=== PATIENT | female | born 2000 | race Caucasian/White ===

== ENCOUNTER 2022-07-27 21:30 | Outpatient (REF) | payer BC, SELFPAY ==
[2022-07-30 14:09] LABS: Age Gdln ACOG Testing Note (.); IGP, rfx Aptima HPV ASCU Note (.)
== END 2022-07-27 21:31 | disposition home or self-care (01) ==
LOC: LAB 21:30
PROVIDERS: Visit Provider Obstetrics & Gynecology
DX: Z12.4 Encounter for screening for malignant neoplasm of cervix (principal)
CPT/HCPCS: G0145

== ENCOUNTER 2022-12-16 12:36 | Outpatient (OUT) | payer BC, OTHER, SELFPAY ==
--- NOTE | 2022-12-16 12:37 | US_ITS ---
[address] [address] Patient Name: ABRAHAM INFANTE MRN: [id number] date: 2000 Sex: F Assigned Patient Location: US Current Patient Location: Accession/Order Number: [id number] Exam Date: 12/16/2022 12:38 Report Date: 12/16/2022 17:49 At the request of: ONIEL SANCHEZ Procedure: US OB transvaginal EXAMINATION: US OB transvaginal HISTORY: MISSED MENSES COMPARISON: No relevant comparison available. FINDINGS: Waters intrauterine gestation Gestational sac: 4.4 cm, 9 weeks 6 days CRL: 3.1 cm, 10 weeks 0 days Yolk sac: 4.7 mm Heart rate: 169 bpm Identified adjacent to the gestational sac is an area of hypoechogenicity measuring 1.8 x 1.4 x 1.1 cm The uterus is normal The ovaries are normal. The right ovary measures 3.1 x 2.0 x 1.5 cm. the left ovary measures 2.4 x 1.4 x 1.3 cm Cervix: Closed, 4.4 cm Clinical age: 9 weeks 3 days Clinical RC: 07/18/2023 Ultrasound age: 10 weeks 0 days Ultrasound RC: 07/14/2023 US/US OB transvaginal IMPRESSION: Viable waters intrauterine gestation measuring 10 weeks 0 days Suspected subchorionic hematoma Electronically authenticated by: EDMAR HOOKS Date: 12/16/2022 17:49
== END 2022-12-16 12:37 | disposition home or self-care (01) ==
PROVIDERS: Visit Provider Obstetrics & Gynecology
DX: Z34.91 Encounter for supervision of normal pregnancy, unspecified, first trimester (principal); Z3A.10 10 weeks gestation of pregnancy
CPT/HCPCS: 76817

== ENCOUNTER 2023-07-07 13:23 | Outpatient (OUT) | payer BC, OTHER, SELFPAY ==
--- OUTSIDE RECORDS SUMMARY | 2023-07-07 13:34 | XMS_ITS | CCD ---
Author Organization [facility] Care Team Providers Care Adult [employer] Instructor Name Role Phone DANIEL ., DR ENGLE Consulting Unavailable REQUEST, DR MOISES LISTED Primary Care Unavaila ble DANIEL ., DR ENGLE Attending Unavailable DANIEL ., DR ENGLE Admitting Unavailable ZIEBER, DR INDIRA Gooden Consulting Unavailable REQUEST, DR DE LEON LISTED Primary Care Unavaila ble DANIEL ., DR ENGLE Attending Unavailable DANIEL ., DR ENGLE Admitting Unavailable DANIEL ., DR ENGLE Consulting Unavailable DANIEL ., DR ENGLE Attending Unavailable REQUEST, DR NONE LISTED Primary Care Unavaila ble DANIEL ., DR ENGLE Admitting Unavailable CASTILLO, DR FOUZIA Gooden Attending Unavailable CASTILLO, DR FOUZIA Gooden Admitting Unavailable REQUEST, DR DE LOEN LISTED Primary Care Unavaila ble ANNA, DR FOUZIA Gooden Consulting Unavailable DANIEL ., DR ENGLE Consulting Unavailable DANIEL ., DR ENGLE Attending Unavailable REQUEST, DR DE LEON LISTED Primary Care Unavaila ble DANIEL ., DR ENGLE Admitting Unavailable ZIEBER, DR INDIRA Gooden Consulting Unavailable MARKER ., DR SOTO Attending Unavailable MARKER ., DR SOTO Admitting Unavailable REQUEST, DR DE LEON LISTED Primary Care Unavaila ble MARKER ., DR SOTO Consulting Unavailable GATITOCARLA CARTER Consulting Unavailable DANIEL ., DR ENGLE Consulting Unavailable DANIEL ., DR ENGLE Admitting Unavailable REQUEST, DR DE LEON LISTED Primary Care Unavaila ble DANIEL ., DR ENGLE Attending Unavailable ELMA II, JESS Consulting Unavailable DANIEL ., DR ENGLE Procedure Practitioner Unavail able DANIEL ., DR ENGLE Consulting Unavailable DANIEL ., DR ENGLE Attending Unavailable DANIEL ., DR ENGLE Admitting Unavailable REQUEST, DR MOISES LISTED Primary Care Unavaila ble DANIEL ., DR ENGLE Admitting Unavailable WEST, DR EDMAR Mora Consulting Unavailable REQUEST, NONE LISTED Primary Care Unavaila ble DANIEL ., DR ENGLE Attending Unavailable DANIEL ., DR ENGLE Consulting Unavailable DANIEL ., DR ENGLE Consulting Unavailable DANIEL ., DR ENGLE Admitting Unavailable REQUEST, DR NONE LISTED Primary Care Unavaila ble DANIEL ., DR ENGLE Attending Unavailable DANIEL ., DR ENGLE Admitting Unavailable WEST, DR EDMAR Mora Consulting Unavailable REQUEST, DR NONE LISTED Primary Care Unavaila ble DANIEL ., DR ENGLE Attending Unavailable DANIEL ., DR ENGLE Consulting Unavailable DANIEL ., DR ENGLE Consulting Unavailable DANIEL ., DR ENGLE Admitting Unavailable REQUEST, DR NONE LISTED Primary Care Unavaila ble DANIEL ., DR ENGLE Attending Unavailable DANIEL ., DR ENGLE Consulting Unavailable REQUEST, DR NONE LISTED Primary Care Unavaila ble DANIEL ., DR ENGLE Attending Unavailable DANIEL ., DR ENGLE Admitting Unavailable DANIEL ., DR ENGLE Consulting Unavailable REQUEST, DR NONE LISTED Primary Care Unavaila ble DANIEL ., DR ENGLE Admitting Unavailable DANIEL ., DR ENGLE Attending Unavailable DANIEL ., DR ENGLE Admitting Unavailable REQUEST, DR NONE LISTED Primary Care Unavaila ble DANIEL ., DR ENLGE Attending Unavailable DANIEL ., DR ENGLE Consulting Unavailable REQUEST, DR NONE LISTED Primary Care Unavaila ble DANIEL ., DR ENGLE Attending Unavailable DANIEL ., DR ENGLE Admitting Unavailable DANIEL ., DR ENGLE Admitting Unavailable DANIEL ., DR ENGLE Consulting Unavailable REQUEST, DR NONE LISTED Primary Care Unavaila ble DANIEL ., DR ENGLE Attending Unavailable DANIEL ., DR ENGLE Admitting Unavailable REQUEST, NONE LISTED Primary Care Unavaila ble DANIEL ., DR ENGLE Attending Unavailable DIAB ., AYUSH Admitting Unavailable REQUEST, NONE LISTED Primary Care Unavaila ble DIAB ., AYUSH Attending Unavailable KARASIK ., DR HARTMAN Attending Unavailabl e KARASIK ., DR HARTMAN Admitting Unavailabl e KARASIK ., DR HARTMAN Consulting Unavailabl e REQUEST, DR DE LEON LISTED Primary Care Unavaila ble Problems Active Problems Problem Classification Problem Date Documented Date Episodic/Chronic Abdominal pain (1 source) Left lower quadrant pain; Translations: [LEFT LOWER QUADRANT PAIN] Onset: 03-08-2022 Episodic Menstrual disorders (4 sources) Irregular menstruation, unspecified; Translations: [IRREGULAR MENSTRUATION UNSPECIFIED] Onset: 10-27-2021 Chronic OB-related trauma to perineum and vulva (1 source) First degree perineal laceration during delivery; Translations: [FIRST DEG PERINEAL LAC DUR DELIV] Onset: 05-13-2022 Episodic Other complications of ; puerperium affecting management of mother (1 source) Streptococcus B carrier state complicating childbirth; Translations: [STREP B ESQUIVEL STATE COMP CHILDBIRTH] Onset: 05-13-2022 Episodic Other complications of (4 sources) Other specified related conditions, third trimester; Translations: [OTH SPEC PREG RELATED COND 3RD TRI] Onset: 03-03-2022 Episodic Other complications of (4 sources) Maternal care for excessive growth, third trimester, not applicable or unspecified; Translations: [MAT CARE EXCSS FTL GRTH 3RD TRI UNS] Onset: 03-02-2022 Episodic Other and delivery including normal (14 sources) Encounter for routine follow-up; Translations: [Encounter for supervision of normal , unspecified, third trimester] Onset: 10-12-2021 Episodic Other screening for suspected conditions (not mental disorders or infectious disease) (11 sources) Encounter for screening for diabetes mellitus; Translations: [Encounter for other specified screening] Onset: 11-01-2021 Episodic Residual codes; unclassified (1 source) 39 weeks gestation of ; Translations: [39 WEEKS GESTATION OF ] Onset: 05-13-2022 Episodic Residual codes; unclassified (1 source) 30 weeks gestation of ; Translations: [30 WEEKS GESTATION OF ] Onset: 03-08-2022 Episodic Screening and history of mental health and substance abuse codes (1 source) Personal history of nicotine dependence; Translations: [PERSONAL HISTORY OF NICOTINE DEPEND] Onset: 05-13-2022 Episodic Past or Other Problems Problem Classification Problem Date Documented Da te Episodic/Chronic Gastrointestinal hemorrhage (1 source) Hematemesis; Translations: [HEMATEMESIS] Onset: 10-14-2021 Episodic Hemorrhage during ; abruptio placenta; placenta previa (4 sources) Hemorrhage in early , unspecified; Translations: [HEMORRHAGE EARLY UNS] Onset: 07-07-2021 Episodic Immunizations and screening for infectious disease (1 source) Contact with and (suspected) exposure to infections with a predominantly sexual mode of transmission; Translations: [CONTCT W EXPOS INFECT SEXUAL TRNSMS] Onset: 11-01-2021 Episodic Nausea and vomiting (3 sources) Vomiting, unspecified; Translations: [VOMITING UNSPECIFIED] Onset: 10-12-2021 Episodic Other complications of (1 source) Other specified related conditions, first trimester; Translations: [OTH SPEC PREG RELATED COND 1ST TRI] Onset: 10-14-2021 Episodic Other complications of (4 sources) with inconclusive viability, not applicable or unspecified; Translations: [PREG INCONCLUS VIABIL NA/UNS] Onset: 07-15-2021 Episodic Residual codes; unclassified (1 source) 10 weeks gestation of ; Translations: [10 WEEKS GESTATION OF ] Onset: 10-14-2021 Episodic Residual codes; unclassified (1 source) 9 weeks gestation of ; Translations: [9 WEEKS GESTATION OF ] Onset: 10-12-2021 Episodic Residual codes; unclassified (1 source) Less than 8 weeks gestation of ; Translations: [< 8 WEEKS GESTATION ] Onset: 07-09-2021 Episodic Spontaneous (4 sources) Complete or unspecified spontaneous without complication; Translations: [COMPLETE/UNS SPONT AB W/O COMP] Onset: 06-11-2021 Episodic Results Test Name Value Interpretation Reference Range Facility CBC AUTO DIFFon 05-05-2022 BASO # 0.0 103/ul Normal 0.0-0.1 [facility] Comment on above: Performed By: #### C BC #### [facility] [address] [place] [address] Dr. Mary Perera Basophils/100 WBC (Bld) 0.2 % Normal 0.2-2.0 [facility] Comment on above: Performed By: #### C BC #### [facility] [address] [address] [address] Mary Perera EO # 0.1 103/ul Normal 0.0-0.7 [facility] Comment on above: Performed By: #### C BC #### [facility] [address] [address] [address] Mary Perera Eosinophils/100 WBC (Bld) 0.8 % Critically low 0.9-7.0 [facility] Comment on above: Performed By: #### C BC #### [facility] [address] [place] [address] Dr. Mary Perera Erythrocyte distribution width (RBC) [Ratio] 14.3 % Normal 11.0-15.0 [facility] Comment on above: Performed By: #### C BC #### [facility] [address] [place] [address] Dr. Mary Perera Hematocrit (Bld) [Volume fraction] 36.0 % Normal 36.0-48.0 [facility] Comment on above: Performed By: #### C BC #### [facility] [address] [place] [address] Dr. Mary Perera Hemoglobin (Bld) [Mass/Vol] 12.3 g/dL Normal 12.0-16.0 [facility] Comment on above: Performed By: #### C BC #### [facility] [address] [place] [address] Dr. Mary Perera IG # 0.07 10e3/ul Critically high 0.00-0.03 [facility] Comment on above: Performed By: #### C BC #### [facility] [address] [place] [address] Dr. Mary Perera IG % 0.5 % Normal 0.0-0.5 [facility] Comment on above: Performed By: #### C BC #### [facility] [address] [place] [address] Dr. Mary Perera LYMPH # 2.2 103/ul Normal 1.2-3.8 [facility] Comment on above: Performed By: #### C BC #### [facility] [address] [place] [address] Dr. Mary Perera Lymphocytes/100 WBC (Bld) 15.3 % Critically low 20.5-60.0 [facility] Comment on above: Performed By: #### C BC #### [facility] [address] [place] [address] Dr. Mary Perera MANUAL DIFF REQ NO Normal [facility] Comment on above: Performed By: #### C BC #### [facility] [address] [address] [address] Mary Perera MCH (RBC) [Entitic mass] 30.4 pg Normal 26.7-34.0 [facility] Comment on above: Performed By: #### C BC #### [facility] [address] [address] [address] Mary Perera MCHC (RBC) [Mass/Vol] 34.2 g/dL Normal 29.9-35.2 [facility] Comment on above: Performed By: #### C BC #### [facility] [address] [address] [address] Mary Perera MCV (RBC) [Entitic vol] 89.1 fL Normal 81.0-99.0 [facility] Comment on above: Performed By: #### C BC #### [facility] [address] [place] [address] Dr. Mary Perera MONO # 0.9 103/ul Critically high 0.3-0.8 [facility] Comment on above: Performed By: #### C BC #### [facility] [address] [address] [address] Mary Perera Monocytes/100 WBC (Bld) 6.4 % Normal 1.7-12.0 [facility] Comment on above: Performed By: #### C BC #### [facility] [address] [place] [address] Dr. Mary Perera NEUT # 10.9 103/ul Critically high 1.4-6.5 [facility] Comment on above: Performed By: #### C BC #### [facility] [address] [place] [address] Dr. Mary Perera Neutrophils/100 WBC (Bld) 76.8 % Critically high 43.0-75.0 [facility] Comment on above: Performed By: #### C BC #### [facility] [address] [place] [address] Dr. Mary Perera Platelet mean volume (Bld) [Entitic vol] 9.2 fL Critically low 9.5-13.5 [facility] Comment on above: Performed By: #### C BC #### [facility] [address] [address] [address] Mary Perera PLT 251 103/ul Normal 150-450 [facility] Comment on above: Performed By: #### C BC #### [facility] [address] [address] [address] Mary Perera RBC 4.04 106/ul Critically low 4.20-5.40 [facility] Comment on above: Performed By: #### C BC #### [facility] [address] [address] [address] Mary Perera WBC 14.2 103/ul Critically high 4.0-11.0 [facility] Comment on above: Performed By: #### C BC #### [facility] [address] [place] [address] Dr. Mary Perera CBC AUTO DIFFon 05-04-2022 BASO # 0.0 103/ul Normal 0.0-0.1 [facility] Comment on above: Performed By: #### P REGQNT #### [facility] [address] [place] [address] Dr. Mary Perera Basophils/100 WBC (Bld) 0.3 % Normal 0.2-2.0 [facility] Comment on above: Performed By: #### P REGQNT #### [facility] [address] [place] [address] Dr. Mary Perera EO # 0.1 103/ul Normal 0.0-0.7 [facility] Comment on above: Performed By: #### P REGQNT #### [facility] [address] [place] [address] Dr. Mary Perera Eosinophils/100 WBC (Bld) 1.2 % Normal 0.9-7.0 [facility] Comment on above: Performed By: #### P REGQNT #### [facility] [address] [place] [address] Dr. Mary Perera Erythrocyte distribution width (RBC) [Ratio] 14.1 % Normal 11.0-15.0 [facility] Comment on above: Performed By: #### P REGQNT #### [facility] [address] [address] [address] Mary Perera Hematocrit (Bld) [Volume fraction] 38.2 % Normal 36.0-48.0 [facility] Comment on above: Performed By: #### P REGQNT #### [facility] [address] [address] [address] Mary Perera Hemoglobin (Bld) [Mass/Vol] 13.2 g/dL Normal 12.0-16.0 [facility] Comment on above: Performed By: #### P REGQNT #### [facility] [address] [place] [address] Dr. Mary Perera IG # 0.08 10e3/ul Critically high 0.00-0.03 [facility] Comment on above: Performed By: #### P REGQNT #### [facility] [address] [place] [address] Dr. Mary Perera IG % 0.9 % Critically high 0.0-0.5 [facility] Comment on above: Performed By: #### P REGQNT #### [facility] [address] [place] [address] Dr. Mary Perera LYMPH # 2.8 103/ul Normal 1.2-3.8 [facility] Comment on above: Performed By: #### P REGQNT #### [facility] [address] [place] [address] Dr. Mary Perera Lymphocytes/100 WBC (Bld) 31.1 % Normal 20.5-60.0 [facility] Comment on above: Performed By: #### P REGQNT #### [facility] [address] [address] [address] Mary Perera MANUAL DIFF REQ NO Normal [facility] Comment on above: Performed By: #### P REGQNT #### [facility] [address] [place] [address] Dr. Mary Perera MCH (RBC) [Entitic mass] 30.8 pg Normal 26.7-34.0 [facility] Comment on above: Performed By: #### P REGQNT #### [facility] [address] [place] [address] Dr. Mary Perera MCHC (RBC) [Mass/Vol] 34.6 g/dL Normal 29.9-35.2 [facility] Comment on above: Performed By: #### P REGQNT #### [facility] [address] [place] [address] Dr. Mary Perera MCV (RBC) [Entitic vol] 89.3 fL Normal 81.0-99.0 [facility] Comment on above: Performed By: #### P REGQNT #### [facility] [address] [place] [address] Dr. Mary Perera MONO # 0.7 103/ul Normal 0.3-0.8 [facility] Comment on above: Performed By: #### P REGQNT #### [facility] [address] [place] [address] Dr. Mary Perera Monocytes/100 WBC (Bld) 7.9 % Normal 1.7-12.0 [facility] Comment on above: Performed By: #### P REGQNT #### [facility] [address] [place] [address] Dr. Mary Perera NEUT # 5.3 103/ul Normal 1.4-6.5 [facility] Comment on above: Performed By: #### P REGQNT #### [facility] [address] [place] [address] Dr. Mary Perera Neutrophils/100 WBC (Bld) 58.6 % Normal 43.0-75.0 [facility] Comment on above: Performed By: #### P REGQNT #### [facility] [address] [place] [address] Dr. Mary Perera Platelet mean volume (Bld) [Entitic vol] 9.3 fL Critically low 9.5-13.5 [facility] Comment on above: Performed By: #### P REGQNT #### [facility] [address] [place] [address] Dr. Mary Perera PLT 271 103/ul Normal 150-450 [facility] Comment on above: Performed By: #### P REGQNT #### [facility] [address] [place] [address] Dr. Mary Perera RBC 4.28 106/ul Normal 4.20-5.40 [facility] Comment on above: Performed By: #### P REGQNT #### [facility] [address] [place] [address] Dr. Mary Perera WBC 9.0 103/ul Normal 4.0-11.0 [facility] Comment on above: Performed By: #### P REGQNT #### [facility] [address] [place] [address] Dr. Mary Perera DRUG SCREEN RAPID (URINE)on 05-04-2022 AMP Negative Normal NEGATIVE [facility] Comment on above: Performed By: #### P REGQNT #### [facility] [address] [place] [address] Dr. Mary Perera BAR Negative Normal NEGATIVE [facility] Comment on above: Performed By: #### P REGQNT #### [facility] [address] [place] [address] Dr. Mary Perera BUP Negative Normal NEGATIVE [facility] Comment on above: Performed By: #### P REGQNT #### [facility] [address] [place] [address] Dr. Mary Perera BZO Negative Normal NEGATIVE [facility] Comment on above: Performed By: #### P REGQNT #### [facility] [address] [place] [address] Dr. Mary Perera JOSÉ LUIS Negative Normal NEGATIVE [facility] Comment on above: Performed By: #### P REGQNT #### [facility] [address] [place] [address] Dr. Mary Perera CUT-OFFS SEE BELOW Normal [facility] Comment on above: Result Comment: AMP (Amphetamine): 500ng/mL, BAR (Barbituates): 200 ng/mL, BZO (Benzodiazepines): 150 ng/mL, BUP (Buprenorphine): 10 ng/mL, JOSÉ LUIS (Cocaine): 150 ng/mL, mAMP (Methamphetamine): 500 ng/mL, MTD (Methadone): 200 ng/mL, OPI (Opiates): 100 ng/mL, OXY (Oxycodone): 100 ng/mL, PCP (Phencyclidine): 25 ng/mL, PPX (Propoxyphene): 300 ng/mL, THC (Cannabinoids): 50 ng/mL, TCA (Trycyclic Antidepressants): 300 ng/mL Performed By: #### P REGQNT #### [facility] [address] [place] [address] Dr. Mary Perera DRUG CUT HEADER DRUG CLASS TEST SYSTEM CUT-OFF CONCENTRATIONS ARE FOLLOWS: Normal [facility] Comment on above: Performed By: #### P REGQNT #### [facility] [address] [place] [address] Dr. Mary Perera mAMP Negative Normal NEGATIVE [facility] Comment on above: Performed By: #### P REGQNT #### [facility] [address] [place] [address] Dr. Mary Perera MTD Negative Normal NEGATIVE [facility] Comment on above: Performed By: #### P REGQNT #### [facility] [address] [place] [address] Dr. Mary Perera OPI Negative Normal NEGATIVE [facility] Comment on above: Performed By: #### P REGQNT #### [facility] [address] [place] [address] Dr. Mary Perera OXY Negative Normal NEGATIVE [facility] Comment on above: Performed By: #### P REGQNT #### [facility] [address] [place] [address] Dr. Mary Perera PCP Negative Normal NEGATIVE [facility] Comment on above: Performed By: #### P REGQNT #### [facility] [address] [place] [address] Dr. Mary Perera PPX Negative Normal NEGATIVE [facility] Comment on above: Performed By: #### P REGQNT #### [facility] [address] [place] [address] Dr. Mary Perera TCA Negative Normal NEGATIVE [facility] Comment on above: Performed By: #### P REGQNT #### [facility] [address] [place] [address] Dr. Mary Perera THC Negative Normal NEGATIVE [facility] Comment on above: Performed By: #### P REGQNT #### [facility] [address] [place] [address] Dr. Mary Perera TYPE AND SCREENon 05-04-2022 TYPE AND SCREEN Negative Normal [facility] Comment on above: Performed By: #### T NS #### [facility] [address] [place] [address] Dr. Mary Perera GROUP B STREP CULTUREon S. agalactiae Ag Ql (Unsp spec) Culture Observations: Group B Strep called to Giselle Gardner/EMILEE at Dr. Vieira's office 04/19/22 @08[facility] Isolate 1 Streptococcus agalactiae Moderate growth of ORGANISM 1 Streptococcus agalactiae ANTIBIOTIC M.I.C RX STATUS Benzylpenicillin <=0.06 S F Ampicillin <=0.25 S F Cefotaxime <=0.12 S F Ceftriaxone <=0.12 S F Levofloxacin 0.5 S F Inducible Clindamycin Resistance Neg NEG F Erythromycin >=8 R F Clindamycin >=1 R F Linezolid <=2 S F Vancomycin 0.25 S F Tetracycline >=16 R F Normal [facility] Comment on above: Performed By: #### G BSCX #### [facility] [address] [place] [address] Dr. Mary Perera CULTURE URINEon 03-03-2022 CULTURE URINE Culture Observations : LIGHT GROWTH OF MIXED GENITAL DANTE. NO POTENTIAL PATHOGENS SEEN. Normal [facility] Comment on above: Performed By: #### C BC #### [facility] [address] [place] [address] Dr. 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 Mary Perera Clarity (U) CLEAR Normal CLEAR [facility] Comment on above: Performed By: #### C MP #### [facility] [address] [place] [address] Dr. Mary Perera Color (U) LT. YELLOW Normal YELLOW [facility] Comment on above: Performed By: #### C MP #### [facility] [address] [place] [address] Dr. Mary Perera Glucose Ql (U) Negative Normal NEGATIVE [facility] Comment on above: Performed By: #### C MP #### [facility] [address] [place] [address] Dr. Mary Perera Hemoglobin Ql (U) Negative Normal NEGATIVE [facility] Comment on above: Performed By: #### C MP #### [facility] [address] [place] [address] Dr. Mary Perera Ketones Ql (U) Negative Normal NEGATIVE [facility] Comment on above: Performed By: #### C MP #### [facility] [address] [place] [address] Dr. Mary Perera LEUKOCYTES LARGE Abnormal NEGATIVE [facility] Comment on above: Performed By: #### C MP #### [facility] [address] [place] [address] Dr. Mary Perera Nitrite Ql (U) Negative Normal NEGATIVE [facility] Comment on above: Performed By: #### C MP #### [facility] [address] [place] [address] Dr. Mary Perera pH (U) 6.0 [pH] Normal 5-9 [facility] Comment on above: Performed By: #### C MP #### [facility] [address] [place] [address] Dr. Mary Perera SPEC GRAVITY 1.020 Normal 1.005-<=1.025 [facility] Comment on above: Performed By: #### C MP #### [facility] [address] [place] [address] Dr. Mary Perera UA PROTEIN Negative Normal NEGATIVE/ TRACE [facility] Comment on above: Performed By: #### C MP #### [facility] [address] [place] [address] Dr. Mary Perera UR MICRO IND INDICATED Normal [facility] Comment on above: Performed By: #### C MP #### [facility] [address] [place] [address] Dr. Mary Perera Urobilinogen Qn (U) 0.2 {Tung'U}/dL Normal 0.2 - 1. 0 [facility] Comment on above: Performed By: #### C MP #### [facility] [address] [place] [address] Dr. Mary Perera URINE MICROSCOPIC ONLYon BACTERIA SMALL Abnormal NONE SEEN [facility] Comment on above: Performed By: #### C MP #### [facility] [address] [place] [address] Dr. Mary Perera Bacteria identified Cx Nom (U) INDICATED Normal [facility] Comment on above: Performed By: #### C MP #### [facility] [address] [place] [address] Dr. Mary Perera CAST NONE SEEN Normal NONE SEEN [facility] Comment on above: Performed By: #### C MP #### [facility] [address] [place] [address] Dr. Mary Perera Crystals LM Nom (Urine sed) NONE SEEN Normal NONE SEEN [facility] Comment on above: Performed By: #### C MP #### [facility] [address] [place] [address] Dr. Mary Perera Epithelial cells LM Ql (Urine sed) MODERATE Abnormal NONE SEEN /RARE [facility] Comment on above: Performed By: #### C MP #### [facility] [address] [place] [address] Dr. Mary Perera MUCOUS NONE SEEN Normal NONE SEEN [facility] Comment on above: Performed By: #### C MP #### [facility] [address] [place] [address] Dr. Mary Perera RBC 5-10 Abnormal 0-2 [facility] Comment on above: Performed By: #### C MP #### [facility] [address] [place] [address] Dr. Mary Perera WBC 10-20 Abnormal NONE SEEN [facility] Comment on above: Performed By: #### C MP #### [facility] [address] [place] [address] Dr. Mary Perera US PREG GROWTHon 03-02-2022 US PREG GROWTH EXAMINATION: US PREG GROWTH HISTORY: Large for gestation age fetus COMPARISON: No relevant comparison available. FINDINGS: Heart Rate: 132.0 bpm Amniotic Fluid Volume: 11.9 cm Number: 1.0 Position: Cephalic presentation, longitudinal lie Maximum Vertical Pocket: 3.9 cm cm 1.8 cm cm 3.2 cm cm 2.9 cm cm BIOMETRY: BPD: 7.6 cm cm; 30 weeks 4 days; 53% HC: 27.8 cmcm; 30 weeks 3 days, 22% AC: 25.2 cm cm; 29 weeks 3 days, 23% FL: 6.0 cm cm; 31 weeks 3 days; 70.1 % EFW: 1533.6 grams, 3 lbs. 6 oz., 40% FL/AC: 23.9 FL/BPD: 79.0 HC/AC: 1.1 GESTATIONAL AGE: Age by EDC: 30 weeks 1 days RC by EDC: 05/10/2022 Age by US: 30 weeks 3 days RC by US: 05/08/2022 IMPRESSION: Normal interval growth Electronically authenticated by: EDMAR HOOKS Date: 2022-03-02 16:20 Normal [facility] CBC AUTO DIFFon 02-18-2022 BASO # 0.0 103/ul Normal 0.0-0.1 [facility] Comment on above: Performed By: #### C BC #### [facility] [address] [place] [address] Dr. Mary Perera Basophils/100 WBC (Bld) 0.4 % Normal 0.2-2.0 [facility] Comment on above: Performed By: #### C BC #### [facility] [address] [place] [address] Dr. Mary Perera EO # 0.2 103/ul Normal 0.0-0.7 [facility] Comment on above: Performed By: #### C BC #### [facility] [address] [place] [address] Dr. Mary Perera Eosinophils/100 WBC (Bld) 1.8 % Normal 0.9-7.0 [facility] Comment on above: Performed By: #### C BC #### [facility] [address] [place] [address] Dr. Mary Perera Erythrocyte distribution width (RBC) [Ratio] 13.4 % Normal 11.0-15.0 [facility] Comment on above: Performed By: #### C BC #### [facility] [address] [place] [address] Dr. Mary Perera Hematocrit (Bld) [Volume fraction] 34.9 % Critically low 36.0-48.0 [facility] Comment on above: Performed By: #### C BC #### [facility] [address] [place] [address] Dr. Mary Perera Hemoglobin (Bld) [Mass/Vol] 12.1 g/dL Normal 12.0-16.0 [facility] Comment on above: Performed By: #### C BC #### [facility] [address] [place] [address] Dr. Mary Perera IG # 0.11 10e3/ul Critically high 0.00-0.03 [facility] Comment on above: Performed By: #### C BC #### [facility] [address] [place] [address] Dr. Mary Perera IG % 1.1 % Critically high 0.0-0.5 [facility] Comment on above: Performed By: #### C BC #### [facility] [address] [place] [address] Dr. Mary Perera LYMPH # 2.0 103/ul Normal 1.2-3.8 [facility] Comment on above: Performed By: #### C BC #### [facility] [address] [place] [address] Dr. Mary Perera Lymphocytes/100 WBC (Bld) 20.3 % Critically low 20.5-60.0 [facility] Comment on above: Performed By: #### C BC #### [facility] [address] [place] [address] Dr. Mary Perera MANUAL DIFF REQ NO Normal [facility] Comment on above: Performed By: #### C BC #### [facility] [address] [place] [address] Dr. Mary Perera MCH (RBC) [Entitic mass] 31.5 pg Normal 26.7-34.0 [facility] Comment on above: Performed By: #### C BC #### [facility] [address] [place] [address] Dr. Mary Perera MCHC (RBC) [Mass/Vol] 34.7 g/dL Normal 29.9-35.2 [facility] Comment on above: Performed By: #### C BC #### [facility] [address] [place] [address] Dr. Mary Perera MCV (RBC) [Entitic vol] 90.9 fL Normal 81.0-99.0 [facility] Comment on above: Performed By: #### C BC #### [facility] [address] [place] [address] Dr. Mary Perera MONO # 0.6 103/ul Normal 0.3-0.8 [facility] Comment on above: Performed By: #### C BC #### [facility] [address] [place] [address] Dr. Mary Perera Monocytes/100 WBC (Bld) 6.3 % Normal 1.7-12.0 [facility] Comment on above: Performed By: #### C BC #### [facility] [address] [place] [address] Dr. Mary Perera NEUT # 7.0 103/ul Critically high 1.4-6.5 [facility] Comment on above: Performed By: #### C BC #### [facility] [address] [place] [address] Dr. Mary Perera Neutrophils/100 WBC (Bld) 70.1 % Normal 43.0-75.0 [facility] Comment on above: Performed By: #### C BC #### [facility] [address] [address] [address] Mary Perear Platelet mean volume (Bld) [Entitic vol] 9.2 fL Critically low 9.5-13.5 [facility] Comment on above: Performed By: #### C BC #### [facility] [address] [address] [address] Mary Perera PLT 252 103/ul Normal 150-450 [facility] Comment on above: Performed By: #### C BC #### [facility] [address] [address] [address] Mary Perera RBC 3.84 106/ul Critically low 4.20-5.40 [facility] Comment on above: Performed By: #### C BC #### [facility] [address] [address] [address] Mary Perera WBC 10.0 103/ul Normal 4.0-11.0 [facility] Comment on above: Performed By: #### C BC #### [facility] [address] [address] [address] Mary Perera GLUCOSE - 1HRon 02-18-2022 Glucose [Mass/Vol] 106 mg/dL Normal 74-[address] [facility] Comment on above: Performed By: #### C BC #### [facility] [address] [place] [address] Dr. Mary Perera US PREG ANATOMY SINGLEon US PREG ANATOMY SINGLE EXAMINATION: US PREG ANATOMY SINGLE HISTORY: anatomy study COMPARISON: No relevant comparison available. TECHNIQUE: Transabdominal sonographic examination was performed for obstetrical and evaluation. FINDINGS: Number: 1 Heart Rate: 134.0 bpm H.B. /min Amniotic Fluid Volume: Subjectively normal. Placental Location: Posterior, placental edge 3.6 cm from the internal cervical os position: Breech presentation, longitudinal lie Cervix Length: 4.6 cm, small amount of fluid in the endocervical canal measuring 1 mm Normally visualized anatomy: Cerebellum, choroid plexus, cisterna magna, lateral cerebral ventricles, orbits, midline falx, hard palate, four-chamber heart, RVOT, LVOT, stomach, kidneys, bladder, umbilical cord insertion into the abdomen, three-vessel cord, cervical spine, thoracic spine, lumbar spine, sacral spine, right upper extremity, left upper extremity, right lower extremity, left lower extremity Suboptimally visualized anatomy: None BIOMETRY: BPD: 4.1 cm 18 weeks 4 days , 3% HC: 16.7 cm 19 weeks 2 days, 11% AC: 14.5 cm 19 weeks 6 days, 33% FL: 3.4 cm 20 weeks 3 days, 55% EFW:325.3 grams; 11 ounces FL/AC: 23.1 FL/BPD: 81.1 HC/AC: 1.2 GESTATIONAL AGE: Age by EDC: 20 weeks 1 days RC by EDC: 05/10/2022 Age by current US: 19 weeks 4 days RC by current US: 05/14/2022 IMPRESSION: Normal anatomy scan *Reference: [employer] Practice Guideline for the performance of Obstetric Ultrasound Examinations, November 14, 2006. Electronically authenticated by: EDMAR HOOKS Date: 2021-12-22 19:05 Normal [facility] AFP MATERNAL FOR SPINA BIFID Aon 12-21-2021 AFP MoM 0.53 Normal [facility] Comment on above: Performed By: #### C BC #### [facility] [address] [address] [address] Mary Perera AFP Value 27.5 ng/mL Normal [facility] Comment on above: Performed By: #### C BC #### [facility] [address] [address] [address] Mary Perera AFP, Serum for Spina Bifida Report Normal [facility] Comment on above: Performed By: #### C BC #### [facility] [address] [address] [address] Mary Perera Comment Comment Normal [facility] Comment on above: Result Comment: Florina Cordero, Ph.D., [facility] Director . References: Available Upon Request. . Multiples Of Median Cutoffs For AFP Elevations Nash 2.5 Black 2.8 IDD 2.0 Twins 4.5 Abbreviation Definitions IDD - Insulin Dep Diabetes OSBR - Open Spina Bifida Risk . For further inquiries contact [employer] at [phone]. . This test was developed and its performance characteristics determined by [employer]. It has not been cleared or approved by the Food and Drug Administration. Performed By: #### C BC #### [facility] [address] [place] [address] Dr. Mary Covarrubias Age Collection Date 19.3 weeks Normal [facility] Comment on above: Performed By: #### C BC #### [facility] [address] [place] [address] Dr. Mary Perera Gestat, Age Based on RC Normal [facility] Comment on above: Result Comment: 04/15 Recalculations are not recommended when gestational dating by LMP and ultrasound are within 10 days. Performed By: #### C BC #### [facility] [address] [place] [address] Dr. Mary Perera Insulin Dep Diabetes No Normal [facility] Comment on above: Performed By: #### C BC #### [facility] [address] [place] [address] Dr. Mary Perera Interpretation Comment Normal [facility] Comment on above: Result Comment: Inte rpretation: Screen Negative . This result is screen negative for OSB. The AFP MoM calculated is based on the gestational age provided. MS-AFP can identify up to 80% of open neural tube defects. Closed neural tube defects and some open defects may not be detected by this test. This test does not screen for Down Syndrome or Trisomy 18. If screening for Down Syndrome or Trisomy 18 is desired, contact [employer] to discuss available options. The [employer] recommends amniocentesis be offered to women age 35 and older. Performed By: #### C BC #### [facility] [address] [place] [address] Dr. Mary Perera [age] Normal [facility] Comment on above: Performed By: #### C BC #### [facility] [address] [place] [address] Dr. Mary Perera Multiple Gestation No Normal [facility] Comment on above: Performed By: #### C BC #### [facility] [address] [place] [address] Dr. Mary Perera OS[place] [address] Normal [facility] Comment on above: Performed By: #### C BC #### [facility] [address] [place] [address] Dr. Mary Perera PDF . Normal [facility] Comment on above: Performed By: #### C BC #### [facility] [address] [place] [address] Dr. Mary Perera Race Normal [facility] Comment on above: Performed By: #### C BC #### [facility] [address] [place] [address] Dr. Mary Perera Test Results: Negative Normal [facility] Comment on above: Performed By: #### C BC #### [facility] [address] [place] [address] Dr. Mary Perera CULTURE URINEon 10-29-2021 CULTURE URINE Isolate 1 Streptococcus agalactiae 10,000 cfu/mL of ORGANISM 1 Streptococcus agalactiae ANTIBIOTIC M.I.C RX STATUS Benzylpenicillin <=0.06 S F Ampicillin <=0.25 S F Cefotaxime <=0.12 S F Ceftriaxone <=0.12 S F Levofloxacin 0.5 S F Inducible Clindamycin Resistance Neg NEG F Erythromycin >=8 R F Clindamycin >=1 R F Linezolid <=2 S F Vancomycin 0.5 S F Tetracycline >=16 R F Normal [facility] Comment on above: Performed By: #### U RCX #### [facility] [address] [place] [address] Dr. Mary Perera HEP B SURFACE ANTIGEN SCREEN on 10-28-2021 HBsAg Screen Negative Normal Negative [facility] Comment on above: Performed By: #### P REGQNT #### [facility] [address] [place] [address] Dr. Mary Perera HEPATITIS C VIRUS AB W/ REFL EX QUANTon 10-28-2021 HCV AB <0.1 Normal 0.0-0.9 [facility] Comment on above: Performed By: #### C MP #### [facility] [address] [place] [address] Dr. Mary Perera Interpretation: Comment Normal [facility] Comment on above: Result Comment: Nega tive Not infected with HCV, unless recent infection is suspected or other evidence exists to indicate HCV infection. Performed By: #### C MP #### [facility] [address] [place] [address] Dr. Mary Perera HIV 1 AND 2 WITH REFLEXon HIV Screen 4th Generation wRfx Non-Reactive Normal Non Reactive [facility] Comment on above: Result Comment: HIV Negative HIV-1/HIV-2 antibodies and HIV-1 p24 antigen were NOT detected. There is no laboratory evidence of HIV infection. Performed By: #### C MP #### [facility] [address] [place] [address] Dr. Mary Perera RPR QUANTon 10-28-2021 Rapid Plasma Reagin, Quant Non-Reactive Normal NonRea<1:1 [facility] Comment on above: Result Comment: Plea se Note: This test does not meet current guidelines for screening and diagnosis of syphilis. This test is intended for following treatment response in patients being treated for syphilis infection. To screen for syphilis infection, a reflex cascade that includes both RPR and a treponema-specific assay should be utilized, such as Treponema pallidum (Syphilis) Screening [place] (647004) or Rapid Plasma Reagin (RPR) Test With Reflex to Quantitative RPR and Confirmatory Treponema pallidum Antibodies (879728). Performed By: #### C MP #### [facility] [address] [place] [address] Dr. Mary Perera RUBELLA AB IGGon 10-28-2021 Rubella Antibodies, IgG 13.20 index Normal Immune >0.99 [facility] Comment on above: Result Comment: Non- immune <0.90 Equivocal 0.90 - 0.99 Immune >0.99 Performed By: #### R UBIGG #### [facility] [address] [place] [address] Dr. Mary Perera CBC AUTO DIFFon 10-27-2021 BASO # 0.1 103/ul Normal 0.0-0.1 [facility] Comment on above: Performed By: #### P REGQNT #### [facility] [address] [address] [address] Mary Perera Basophils/100 WBC (Bld) 0.6 % Normal 0.2-2.0 [facility] Comment on above: Performed By: #### P REGQNT #### [facility] [address] [address] [address] Mary Perera EO # 0.3 103/ul Normal 0.0-0.7 [facility] Comment on above: Performed By: #### P REGQNT #### [facility] [address] [address] [address] Mary Perera Eosinophils/100 WBC (Bld) 3.4 % Normal 0.9-7.0 [facility] Comment on above: Performed By: #### P REGQNT #### [facility] [address] [place] [address] Dr. Mary Perera Erythrocyte distribution width (RBC) [Ratio] 13.3 % Normal 11.0-15.0 [facility] Comment on above: Performed By: #### P REGQNT #### [facility] [address] [place] [address] Dr. Mary Perera Hematocrit (Bld) [Volume fraction] 40.2 % Normal 36.0-48.0 [facility] Comment on above: Performed By: #### P REGQNT #### [facility] [address] [place] [address] Dr. Mary Perera Hemoglobin (Bld) [Mass/Vol] 13.7 g/dL Normal 12.0-16.0 [facility] Comment on above: Performed By: #### P REGQNT #### [facility] [address] [address] [address] Mary Perera IG # 0.05 10e3/ul Critically high 0.00-0.03 [facility] Comment on above: Performed By: #### P REGQNT #### [facility] [address] [address] [address] Mary Perera IG % 0.5 % Normal 0.0-0.5 [facility] Comment on above: Performed By: #### P REGQNT #### [facility] [address] [address] [address] Mary Perera LYMPH # 2.2 103/ul Normal 1.2-3.8 [facility] Comment on above: Performed By: #### P REGQNT #### [facility] [address] [address] [address] Mary Perera Lymphocytes/100 WBC (Bld) 22.3 % Normal 20.5-60.0 [facility] Comment on above: Performed By: #### P REGQNT #### [facility] [address] [address] [address] Mary Perera MANUAL DIFF REQ NO Normal [facility] Comment on above: Performed By: #### P REGQNT #### [facility] [address] [address] [address] Mary Perera MCH (RBC) [Entitic mass] 29.0 pg Normal 26.7-34.0 [facility] Comment on above: Performed By: #### P REGQNT #### [facility] [address] [address] [address] Mary Perera MCHC (RBC) [Mass/Vol] 34.1 g/dL Normal 29.9-35.2 [facility] Comment on above: Performed By: #### P REGQNT #### [facility] [address] [address] [address] Mary Perera MCV (RBC) [Entitic vol] 85.2 fL Normal 81.0-99.0 [facility] Comment on above: Performed By: #### P REGQNT #### [facility] [address] [address] [address] Mary Perera MONO # 0.6 103/ul Normal 0.3-0.8 [facility] Comment on above: Performed By: #### P REGQNT #### [facility] [address] [address] [address] Mary Perera Monocytes/100 WBC (Bld) 6.4 % Normal 1.7-12.0 [facility] Comment on above: Performed By: #### P REGQNT #### [facility] [address] [address] [address] Mary Perera NEUT # 6.6 103/ul Critically high 1.4-6.5 [facility] Comment on above: Performed By: #### P REGQNT #### [facility] [address] [address] [address] Mary Perera Neutrophils/100 WBC (Bld) 66.8 % Normal 43.0-75.0 [facility] [facility] Comment [facility] above: Performed By: #### P REGQNT #### [facility] [address] [address] [address] Mary Perera Platelet mean volume (Bld) [Entitic vol] 9.2 fL Critically low 9.5-13.5 [facility] Comment on above: Performed By: #### P REGQNT #### [facility] [address] [address] [address] Mary Perera PLT 309 103/ul Normal 150-450 [facility] Comment on above: Performed By: #### P REGQNT #### [facility] [address] [place] [address] Dr. Mary Perera RBC 4.72 106/ul Normal 4.20-5.40 [facility] Comment on above: Performed By: #### P REGQNT #### [facility] [address] [place] [address] Dr. Mary Perera WBC 9.9 103/ul Normal 4.0-11.0 [facility] Comment on above: Performed By: #### P REGQNT #### [facility] [address] [place] [address] Dr. Mary Perera GLYCOHEMOGLOBIN A1Con 2021 ADA RECOMMENDATION SEE BELOW Normal [facility] Comment on above: Result Comment: ADA RECOMMENDED LIMIT 4.0 - 6.0 ADA THERAPEUTIC TARGET < 7.0 ACTION SUGGESTED > 7.0 Performed By: #### P REGQNT #### [facility] [address] [place] [address] Dr. Mary Perera Glucose [Mass/Vol] 94 mg/dL Normal [facility] Comment on above: Performed By: #### P REGQNT #### [facility] [address] [place] [address] Dr. Mary Perera HbA1c (Bld) [Mass fraction] 4.9 % Normal 4.5-6.2 [facility] Comment on above: Performed By: #### P REGQNT #### [facility] [address] [place] [address] Dr. Mary Perera JAMES BOX TEST PT SEND OUTo n 10-27-2021 SENT TO REF LAB 10/27/2021 Normal [facility] Comment on above: Performed By: #### N BOX #### [facility] [address] [place] [address] Dr. Mary Perera TYPE AND SCREENon 10-27-2021 TYPE AND SCREEN Negative Normal [facility] Comment on above: Performed By: #### T NS #### [facility] [address] [place] [address] Dr. Mary Perera CBC AUTO DIFFon 10-12-2021 BASO # 0.1 103/ul Normal 0.0-0.1 [facility] Comment on above: Performed By: #### C BC #### [facility] [address] [place] [address] Dr. Mary Perera Basophils/100 WBC (Bld) 0.4 % Normal 0.2-2.0 [facility] Comment on above: Performed By: #### C BC #### [facility] [address] [place] [address] Dr. Mary Perera EO # 0.2 103/ul Normal 0.0-0.7 [facility] Comment on above: Performed By: #### C BC #### [facility] [address] [place] [address] Dr. Mary Perera Eosinophils/100 WBC (Bld) 1.1 % Normal 0.9-7.0 [facility] Comment on above: Performed By: #### C BC #### [facility] [address] [place] [address] Dr. Mary Perera Erythrocyte distribution width (RBC) [Ratio] 13.0 % Normal 11.0-15.0 [facility] Comment on above: Performed By: #### C BC #### [facility] [address] [place] [address] Dr. Mary Perera Hematocrit (Bld) [Volume fraction] 37.3 % Normal 36.0-48.0 [facility] Comment on above: Performed By: #### C BC #### [facility] [address] [place] [address] Dr. Mary Perera Hemoglobin (Bld) [Mass/Vol] 13.1 g/dL Normal 12.0-16.0 [facility] Comment on above: Performed By: #### C BC #### [facility] [address] [place] [address] Dr. Mary Perera IG # 0.06 10e3/ul Critically high 0.00-0.03 [facility] Comment on above: Performed By: #### C BC #### [facility] [address] [place] [address] Dr. Mary Perera IG % 0.4 % Normal 0.0-0.5 [facility] Comment on above: Performed By: #### C BC #### [facility] [address] [place] [address] Dr. Mary Perera LYMPH # 3.5 103/ul Normal 1.2-3.8 [facility] Comment on above: Performed By: #### C BC #### [facility] [address] [place] [address] Dr. Mary Perera Lymphocytes/100 WBC (Bld) 24.8 % Normal 20.5-60.0 [facility] Comment on above: Performed By: #### C BC #### [facility] [address] [place] [address] Dr. Mary Perera MANUAL DIFF REQ NO Normal [facility] Comment on above: Performed By: #### C BC #### [facility] [address] [place] [address] Dr. Mary Perera MCH (RBC) [Entitic mass] 29.8 pg Normal 26.7-34.0 [facility] Comment on above: Performed By: #### C BC #### [facility] [address] [place] [address] Dr. Mary Perera MCHC (RBC) [Mass/Vol] 35.1 g/dL Normal 29.9-35.2 [facility] Comment on above: Performed By: #### C BC #### [facility] [address] [address] [address] Mary Perera MCV (RBC) [Entitic vol] 84.8 fL Normal 81.0-99.0 [facility] Comment on above: Performed By: #### C BC #### [facility] [address] [place] [address] Dr. Mary Perera MONO # 1.0 103/ul Critically high 0.3-0.8 [facility] Comment on above: Performed By: #### C BC #### [facility] [address] [place] [address] Dr. Mary Perera Monocytes/100 WBC (Bld) 7.0 % Normal 1.7-12.0 [facility] Comment on above: Performed By: #### C BC #### [facility] [address] [place] [address] Dr. Mary Perera NEUT # 9.4 103/ul Critically high 1.4-6.5 [facility] Comment on above: Performed By: #### C BC #### [facility] [address] [place] [address] Dr. Mary Perera Neutrophils/100 WBC (Bld) 66.3 % Normal 43.0-75.0 [facility] Comment on above: Performed By: #### C BC #### [facility] [address] [place] [address] Dr. Mary Perera Platelet mean volume (Bld) [Entitic vol] 9.4 fL Critically low 9.5-13.5 [facility] Comment on above: Performed By: #### C BC #### [facility] [address] [place] [address] Dr. Mary Perera PLT 292 103/ul Normal 150-450 [facility] Comment on above: Performed By: #### C BC #### [facility] [address] [place] [address] Dr. Mary Perera RBC 4.40 106/ul Normal 4.20-5.40 [facility] Comment on above: Performed By: #### C BC #### [facility] [address] [address] [address] Mary Perera WBC 14.2 103/ul Critically high 4.0-11.0 [facility] Comment on above: Performed By: #### C BC #### [facility] [address] [place] [address] Dr. Mary Perera PROF 14(COMP METB)on 022 Albumin [Mass/Vol] 3.5 g/dL Normal 3.4-5.[address] [facility] Comment on above: Performed By: #### P REGQNT #### [facility] [address] [place] [address] Dr. Mary Perera Albumin/Globulin [Mass ratio] 0.9 {ratio} Normal [facility] Comment on above: Performed By: #### P REGQNT #### [facility] [address] [place] [address] Dr. Mary Perera ALP [Catalytic activity/Vol] 66 U/L Normal 46-116 [facility] Comment on above: Performed By: #### P REGQNT #### [facility] [address] [place] [address] Dr. Mary Perera ALT [Catalytic activity/Vol] 22 U/L Normal 14-59 [facility] Comment on above: Performed By: #### P REGQNT #### [facility] [address] [place] [address] Dr. Mary Perera Anion gap [Moles/Vol] 12.2 mmol/L Normal [facility] Comment on above: Performed By: #### P REGQNT #### [facility] [address] [place] [address] Dr. Mary Perera AST [Catalytic activity/Vol] 13 U/L Critically low 15-37 [facility] Comment on above: Performed By: #### P REGQNT #### [facility] [address] [place] [address] Dr. Mary Perera Bilirubin [Mass/Vol] 0.2 mg/dL Normal 0.2-1.0 [facility] Comment on above: Performed By: #### P REGQNT #### [facility] [address] [place] [address] Dr. Mary Perera Calcium [Mass/Vol] 8.8 mg/dL Normal 8.5-10.[address] [facility] Comment on above: Performed By: #### P REGQNT #### [facility] [address] [place] [address] Dr. Mary Perera Chloride [Moles/Vol] 101 mmol/L Normal 98-107 [facility] Comment on above: Performed By: #### P REGQNT #### [facility] [address] [place] [address] Dr. Mary Perera CO2 [Moles/Vol] 24.3 mmol/L Normal 21.0-32.0 [facility] Comment on above: Performed By: #### P REGQNT #### [facility] [address] [place] [address] Dr. Mary Perera Creatinine [Mass/Vol] 0.53 mg/dL Critically low 0.55-1.02 [facility] Comment on above: Performed By: #### P REGQNT #### [facility] [address] [place] [address] Dr. Mary Perera EGFR-AF CITIZEN OF [place] >60 Normal >=60 [facility] Comment on above: Performed By: #### P REGQNT #### [facility] [address] [place] [address] Dr. Mary Perera EGFR-NON AF CITIZEN OF [place] >60 Normal >=60 [facility] Comment on above: Performed By: #### P REGQNT #### [facility] [address] [place] [address] Dr. Mary Perera Globulin (S) [Mass/Vol] 3.8 g/dL Normal [facility] Comment on above: Performed By: #### P REGQNT #### [facility] [address] [place] [address] Dr. Mary Perera Glucose [Mass/Vol] 90 mg/dL Normal 74-[address] [facility] Comment on above: Performed By: #### P REGQNT #### [facility] [address] [place] [address] Dr. Mary Perera Potassium [Moles/Vol] 3.5 mmol/L Normal 3.5-5.1 [facility] Comment on above: Performed By: #### P REGQNT #### [facility] [address] [place] [address] Dr. Mary Perera Protein [Mass/Vol] 7.3 g/dL Normal 6.4-8.[address] [facility] Comment on above: Performed By: #### P REGQNT #### [facility] [address] [place] [address] Dr. Mary Perera Sodium [Moles/Vol] 134 mmol/L Critically low 136-145 [facility] Comment on above: Performed By: #### P REGQNT #### [facility] [address] [place] [address] Dr. Mary Perera Urea nitrogen [Mass/Vol] 7.0 mg/dL Normal 7.0-18.0 [facility] Comment on above: Performed By: #### P REGQNT #### [facility] [address] [place] [address] Dr. Mary Perera Urea nitrogen/Creatinine [Mass ratio] 13.2 mg/mg Normal [facility] Comment on above: Performed By: #### P REGQNT #### [facility] [address] [place] [address] Dr. Mary Perera PROTIMEon 10-12-2021 INR Coag (PPP) [Relative time] 0.95 {INR} Normal [facility] Comment on above: Performed By: #### C MP #### [facility] [address] [place] [address] Dr. Mary Perera INR GUIDELINES SEE BELOW Normal [facility] Comment on above: Result Comment: RODNEY RED INR: 2.0 - 3.0 CONDITIONS NOT LISTED BELOW 2.5 - 3.5 FOR PROSTHETIC HEART VALVE REPLACEMENT 2.5 - 3.5 RECURRENT THROMBOSIS Performed By: #### C MP #### [facility] [address] [address] [address] Mary Perera PT Coag (PPP) [Time] 10.3 s Normal 9.0-11.6 [facility] Comment on above: Performed By: #### C MP #### [facility] [address] [address] [address] Mary Perera PTTon 10-12-2021 aPTT Coag (Bld) [Time] 30.4 s Normal 22.3-36.2 [facility] Comment on above: Performed By: #### C MP #### [facility] [address] [address] [address] Mary Perera US PREG TVon 10-09-2021 US PREG TV EXAMINATION: US PREG TV HISTORY: Missed period COMPARISON: No relevant comparison available. FINDINGS: GESTATIONAL SAC: Present and normal appearing. POLE: Present and normal appearing. YOLK SAC: Present. CARDIAC: Present. UTERUS: Normal size and appearance. OVARIES: Right: Not seen. Left: Normal. CERVIX: 4.6 cm in length and closed. CUL-DE-SAC: Normal. OTHER: None. AGE BY LMP: 9 weeks, 4 days RC BY LMP: 05/10/2022 AGE BY US CRL: 9 weeks, 3 days RC BY US CRL: 05/11/2022 IMPRESSION: 1. Single live intrauterine . Electronically authenticated by: INDIRA TOVAR Date: 2021-10-09 17:14 Normal [facility] US PREG TVon 07-15-2021 US PREG TV EXAMINATION: US PREG TV HISTORY: viability COMPARISON: Ultrasound transvaginal 07/07/2021 FINDINGS: GESTATIONAL SAC: Absent POLE: Absent YOLK SAC: Absent CARDIAC: Absent UTERUS: Normal size and appearance. Endometrium is 11 mm in thickness. OVARIES: Right: Normal. Left: Normal. CERVIX: 4.2 cm in length and closed. CUL-DE-SAC: Normal. OTHER: None. AGE BY LMP: 9 weeks, 5 days RC BY LMP: 02/12/2022 AGE BY US CRL: Not applicable RC BY US CRL: IMPRESSION: 1. No intrauterine . Previously seen gestational sac is no longer present. Electronically authenticated by: INDIRA TOVAR Date: 2021-07-15 11:20 Normal [facility] ABO AND RH TYPEon 07-07-2021 ABO and Rh group Nom (Bld) ABO Rh Typing O Rh Positive Normal [facility] Comment on above: Performed By: #### C BC #### [facility] [address] [place] [address] Dr. Mary Perera CBC AUTO DIFFon 07-07-2021 BASO # 0.0 103/ul Normal 0.0-0.1 [facility] Comment on above: Performed By: #### C MP #### [facility] [address] [place] [address] Dr. Mary Perera Basophils/100 WBC (Bld) 0.6 % Normal 0.2-2.0 [facility] Comment on above: Performed By: #### C MP #### [facility] [address] [place] [address] Dr. Mary Perera EO # 0.1 103/ul Normal 0.0-0.7 [facility] Comment on above: Performed By: #### C MP #### [facility] [address] [place] [address] Dr. Mary Perera Eosinophils/100 WBC (Bld) 1.5 % Normal 0.9-7.0 [facility] Comment on above: Performed By: #### C MP #### [facility] [address] [place] [address] Dr. Mary Perera Erythrocyte distribution width (RBC) [Ratio] 14.6 % Normal 11.0-15.0 [facility] Comment on above: Performed By: #### C MP #### [facility] [address] [place] [address] Dr. Mary Perera Hematocrit (Bld) [Volume fraction] 36.2 % Normal 36.0-48.0 [facility] Comment on above: Performed By: #### C MP #### [facility] [address] [address] [address] Mary Perera Hemoglobin (Bld) [Mass/Vol] 12.3 g/dL Normal 12.0-16.0 [facility] Comment on above: Performed By: #### C MP #### [facility] [address] [place] [address] Dr. Mary Perera IG # 0.01 10e3/ul Normal 0.00-0.03 [facility] Comment on above: Performed By: #### C MP #### [facility] [address] [place] [address] Dr. Mary Perera IG % 0.1 % Normal 0.0-0.5 [facility] Comment on above: Performed By: #### C MP #### [facility] [address] [place] [address] Dr. Mary Perera LYMPH # 3.0 103/ul Normal 1.2-3.8 [facility] Comment on above: Performed By: #### C MP #### [facility] [address] [place] [address] Dr. Mary Perera Lymphocytes/100 WBC (Bld) 42.1 % Normal 20.5-60.0 [facility] Comment on above: Performed By: #### C MP #### [facility] [address] [place] [address] Dr. Mary Perera MANUAL DIFF REQ NO Normal [facility] Comment on above: Performed By: #### C MP #### [facility] [address] [place] [address] Dr. Mary Perera MCH (RBC) [Entitic mass] 28.5 pg Normal 26.7-34.0 [facility] Comment on above: Performed By: #### C MP #### [facility] [address] [place] [address] Dr. Mayr Perera MCHC (RBC) [Mass/Vol] 34.0 g/dL Normal 29.9-35.2 [facility] Comment on above: Performed By: #### C MP #### [facility] [address] [address] [address] Mary Perera MCV (RBC) [Entitic vol] 84.0 fL Normal 81.0-99.0 [facility] Comment on above: Performed By: #### C MP #### [facility] [address] [address] [address] Mary Perera MONO # 0.5 103/ul Normal 0.3-0.8 [facility] Comment on above: Performed By: #### C MP #### [facility] [address] [place] [address] Dr. Mary Perera Monocytes/100 WBC (Bld) 7.5 % Normal 1.7-12.0 [facility] Comment on above: Performed By: #### C MP #### [facility] [address] [place] [address] Dr. Mary Perera NEUT # 3.5 103/ul Normal 1.4-6.5 [facility] Comment on above: Performed By: #### C MP #### [facility] [address] [place] [address] Dr. Mary Perera Neutrophils/100 WBC (Bld) 48.2 % Normal 43.0-75.0 [facility] Comment on above: Performed By: #### C MP #### [facility] [address] [place] [address] Dr. Mary Perera Platelet mean volume (Bld) [Entitic vol] 9.3 fL Critically low 9.5-13.5 [facility] Comment on above: Performed By: #### C MP #### [facility] [address] [place] [address] Dr. Mary Perera PLT 275 103/ul Normal 150-450 [facility] Comment on above: Performed By: #### C MP #### [facility] [address] [place] [address] Dr. Mary Perera RBC 4.31 106/ul Normal 4.20-5.40 [facility] Comment on above: Performed By: #### C MP #### [facility] [address] [place], [place] [id number] Dr. Mary Perera WBC 7.2 103/ul Normal 4.0-11.0 [facility] Comment on above: Performed By: #### C MP #### [facility] [address] [place] [address] Dr. Mary Perera PREG QUANT HCGon 07-07-2021 HCG QUANT 99856 mIU/mL Normal [facility] Comment on above: Performed By: #### P REGQNT #### [facility] [address] [place] [address] Dr. Mary Perera HCG RANGE SEE BELOW Normal [facility] Comment on above: Result Comment: 5-50 0-1 WEEK 40-300 1-2 WEEKS 100-1,000 2-3 WEEKS 500-6,000 3-4 WEEKS 5,000-200,000 1-2 MONTHS 10,000-100,000 2-3 MONTHS 3,000-50,000 2ND TRIMESTER 1,000-50,000 3RD TRIMESTER Performed By: #### P REGQNT #### [facility] [address] [place] [address] Dr. Mary Perera PROF 14(COMP METB)on 022 Albumin [Mass/Vol] 4.0 g/dL Normal 3.4-5.[address] [facility] Comment on above: Performed By: #### C MP #### [facility] [address] [place] [address] Dr. Mary Perera Albumin/Globulin [Mass ratio] 1.2 {ratio} Normal [facility] Comment on above: Performed By: #### C MP #### [facility] [address] [place] [address] Dr. Mary Perera ALP [Catalytic activity/Vol] 57 U/L Normal 46-116 [facility] Comment on above: Performed By: #### C MP #### [facility] [address] [place] [address] Dr. Mary Perera ALT [Catalytic activity/Vol] 36 U/L Normal 14-59 [facility] Comment on above: Performed By: #### C MP #### [facility] [address] [place] [address] Dr. Mary Perera Anion gap [Moles/Vol] 14.0 mmol/L Normal [facility] Comment on above: Performed By: #### C MP #### [facility] [address] [address] [address] Mary Perera AST [Catalytic activity/Vol] 17 U/L Normal 15-37 [facility] Comment on above: Performed By: #### C MP #### [facility] [address] [address] [address] Mary Perera Bilirubin [Mass/Vol] 0.2 mg/dL Normal 0.2-1.0 [facility] Comment on above: Performed By: #### C MP #### [facility] [address] [address] [address] Mary Perera Calcium [Mass/Vol] 8.8 mg/dL Normal 8.5-10.[address] [facility] Comment on above: Performed By: #### C MP #### [facility] [address] [address] [address] Mary Perera Chloride [Moles/Vol] 101 mmol/L Normal 98-107 [facility] Comment on above: Performed By: #### C MP #### [facility] [address] [address] [address] Mary Perera CO2 [Moles/Vol] 25.5 mmol/L Normal 21.0-32.0 [facility] Comment on above: Performed By: #### C MP #### [facility] [address] [address] [address] Mary Perera Creatinine [Mass/Vol] 0.66 mg/dL Normal 0.55-1.02 [facility] Comment on above: Performed By: #### C MP #### [facility] [address] [place] [address] Dr. Mary Perera EGFR-AF CITIZEN OF [place] >60 Normal >=60 [facility] Comment on above: Performed By: #### C MP #### [facility] [address] [address] [address] Mary Perera EGFR-NON AF CITIZEN OF [place] >60 Normal >=60 [facility] Comment on above: Performed By: #### C MP #### [facility] [address] [address] [address] Mary Perera Globulin (S) [Mass/Vol] 3.4 g/dL Normal [facility] Comment on above: Performed By: #### C MP #### [facility] [address] [address] [address] Mary Perera Glucose [Mass/Vol] 106 mg/dL Normal 74-[address] [facility] Comment on above: Performed By: #### C MP #### [facility] [address] [address] [address] Mary Perera Potassium [Moles/Vol] 3.5 mmol/L Normal 3.5-5.1 [facility] Comment on above: Performed By: #### C MP #### [facility] [address] [address] [address] Mary Perera Protein [Mass/Vol] 7.4 g/dL Normal 6.4-8.2 [facility] Comment on above: Performed By: #### C MP #### [facility] [address] [address] [address] Mary Perera Sodium [Moles/Vol] 137 mmol/L Normal 136-[address] [facility] Comment on above: Performed By: #### C MP #### [facility] [address] [address] [address] Mary Perera Urea nitrogen [Mass/Vol] 12.0 mg/dL Normal 7.0-18.0 [facility] Comment on above: Performed By: #### C MP #### [facility] [address] [address] [address] Mary Perera Urea nitrogen/Creatinine [Mass ratio] 18.2 mg/mg Normal [facility] Comment on above: Performed By: #### C MP #### [facility] [address] [address] [address] Mary Perera US PREG TVon 07-07-2021 US PREG TV EXAM: US PREG TV, 07/07/2021 HISTORY: Vaginal bleeding beginning today. Spontaneous COMPARISON: Pelvic ultrasound, 04/08/2021. TECHNIQUE: Transvaginal sonographic images of pelvis were obtained in standard projections FINDINGS: The uterus appears normal and is anteverted in position. There is an intrauterine gestational sac measuring 1.6 cm in mean sac diameter, corresponding to a 6 week . No yolk sac or pole is seen within it. No subchorionic hemorrhage or uterine mass is seen. There appear to be several tiny cystic lesions adjacent to the endometrium which may reflect vessels are endometrial cysts. The cervix is closed and measures 3.2 cm in length. The right ovary appears normal and measures 2.3 x 2.5 x 1.8 cm. Normal color flow is noted. The left ovary appears normal and measures 3 x 2 x 2.7 cm. Normal color flow is noted. No adnexal mass or free pelvic fluid is seen. IMPRESSION: 1. Intrauterine gestational sac with no intrinsic yolk sac or pole. By mean sac diameter, this corresponds to a 6 week , by which time both a yolk sac and pole should be visualized. Therefore, findings appear consistent with a blighted ovum. By dates, the patient should be 8 weeks 4 days . 2. Unremarkable bilateral ovaries. 3. No adnexal mass or free pelvic fluid. Electronically authenticated by: CARLA MEDEROS Date: 2021-07-07 21:47 Normal [facility] CBC AUTO DIFFon 06-11-2021 BASO # 0.0 103/ul Normal 0.0-0.1 [facility] Comment on above: Performed By: #### P REGQNT #### [facility] [address] [place] [address] Dr. Mary Perera Basophils/100 WBC (Bld) 0.6 % Normal 0.2-2.0 [facility] Comment on above: Performed By: #### P REGQNT #### [facility] [address] [place] [address] Dr. Mary Perera EO # 0.1 103/ul Normal 0.0-0.7 [facility] Comment on above: Performed By: #### P REGQNT #### [facility] [address] [place] [address] Dr. Mary Perera Eosinophils/100 WBC (Bld) 1.4 % Normal 0.9-7.0 [facility] Comment on above: Performed By: #### P REGQNT #### [facility] [address] [place] [address] Dr. Mary Perera Erythrocyte distribution width (RBC) [Ratio] 14.6 % Normal 11.0-15.0 [facility] Comment on above: Performed By: #### P REGQNT #### [facility] [address] [place] [address] Dr. Mary Perera Hematocrit (Bld) [Volume fraction] 37.8 % Normal 36.0-48.0 [facility] Comment on above: Performed By: #### P REGQNT #### [facility] [address] [place] [address] Dr. Mary Perera Hemoglobin (Bld) [Mass/Vol] 12.7 g/dL Normal 12.0-16.0 [facility] Comment on above: Performed By: #### P REGQNT #### [facility] [address] [place] [address] Dr. Mary Perera IG # 0.02 10e3/ul Normal 0.00-0.03 [facility] Comment on above: Performed By: #### P REGQNT #### [facility] [address] [place] [address] Dr. Mary Perera IG % 0.3 % Normal 0.0-0.5 [facility] Comment on above: Performed By: #### P REGQNT #### [facility] [address] [place] [address] Dr. Mary Perera LYMPH # 2.6 103/ul Normal 1.2-3.8 [facility] Comment on above: Performed By: #### P REGQNT #### [facility] [address] [place] [address] Dr. Mary Perera Lymphocytes/100 WBC (Bld) 39.6 % Normal 20.5-60.0 [facility] Comment on above: Performed By: #### P REGQNT #### [facility] [address] [place] [address] Dr. Mary Perera MANUAL DIFF REQ NO Normal [facility] Comment on above: Performed By: #### P REGQNT #### [facility] [address] [place] [address] Dr. Mary Perera MCH (RBC) [Entitic mass] 28.4 pg Normal 26.7-34.0 [facility] Comment on above: Performed By: #### P REGQNT #### [facility] [address] [place] [address] Dr. Mary Perera MCHC (RBC) [Mass/Vol] 33.6 g/dL Normal 29.9-35.2 [facility] Comment on above: Performed By: #### P REGQNT #### [facility] [address] [place] [address] Dr. Mary Perera MCV (RBC) [Entitic vol] 84.6 fL Normal 81.0-99.0 [facility] Comment on above: Performed By: #### P REGQNT #### [facility] [address] [place] [address] Dr. Mary Perera MONO # 0.6 103/ul Normal 0.3-0.8 [facility] Comment on above: Performed By: #### P REGQNT #### [facility] [address] [place] [address] Dr. Mary Perera Monocytes/100 WBC (Bld) 8.7 % Normal 1.7-12.0 [facility] Comment on above: Performed By: #### P REGQNT #### [facility] [address] [place] [address] Dr. Mary Perera NEUT # 3.3 103/ul Normal 1.4-6.5 [facility] Comment on above: Performed By: #### P REGQNT #### [facility] [address] [place] [address] Dr. Mary Perera Neutrophils/100 WBC (Bld) 49.4 % Normal 43.0-75.0 [facility] Comment on above: Performed By: #### P REGQNT #### [facility] [address] [place] [address] Dr. Mary Perera Platelet mean volume (Bld) [Entitic vol] 9.2 fL Critically low 9.5-13.5 [facility] Comment on above: Performed By: #### P REGQNT #### [facility] [address] [place] [address] Dr. Mary Perera PLT 271 103/ul Normal 150-450 [facility] Comment on above: Performed By: #### P REGQNT #### [facility] [address] [place] [address] Dr. Mary Perera RBC 4.47 106/ul Normal 4.20-5.40 [facility] Comment on above: Performed By: #### P REGQNT #### [facility] [address] [place] [address] Dr. Mary Perera WBC 6.6 103/ul Normal 4.0-11.0 [facility] Comment on above: Performed By: #### P REGQNT #### [facility] [address] [place] [address] Dr. Mary Perera PREG QUANT HCGon 06-11-2021 HCG QUANT 5397 mIU/mL Normal [facility] Comment on above: Performed By: #### C MP #### [facility] [address] [place] [address] Dr. Mary Perera HCG RANGE SEE BELOW Normal [facility] Comment on above: Result Comment: 5-50 0-1 WEEK 40-300 1-2 WEEKS 100-1,000 2-3 WEEKS 500-6,000 3-4 WEEKS 5,000-200,000 1-2 MONTHS 10,000-100,000 2-3 MONTHS 3,000-50,000 2ND TRIMESTER 1,000-50,000 3RD TRIMESTER Performed By: #### C MP #### [facility] [address] [place] [address] Dr. Mary Perera PREG QUANT HCGon 06-04-2021 HCG QUANT 649 mIU/mL Normal [facility] Comment on above: Performed By: #### C MP #### [facility] [address] [place] [address] Dr. Mary Perera HCG RANGE SEE BELOW Normal [facility] Comment on above: Result Comment: 5-50 0-1 WEEK 40-300 1-2 WEEKS 100-1,000 2-3 WEEKS 500-6,000 3-4 WEEKS 5,000-200,000 1-2 MONTHS 10,000-100,000 2-3 MONTHS 3,000-50,000 2ND TRIMESTER 1,000-50,000 3RD TRIMESTER Performed By: #### C MP #### [facility] [address] [place] [address] Dr. Mary Perera PREG QUANT HCGon 06-02-2021 HCG QUANT 256 mIU/mL Normal [facility] Comment on above: Performed By: #### P REGQNT #### [facility] [address] [place] [address] Dr. Mary Perera HCG RANGE SEE BELOW Normal [facility] Comment on above: Result Comment: 5-50 0-1 WEEK 40-300 1-2 WEEKS 100-1,000 2-3 WEEKS 500-6,000 3-4 WEEKS 5,000-200,000 1-2 MONTHS 10,000-100,000 2-3 MONTHS 3,000-50,000 2ND TRIMESTER 1,000-50,000 3RD TRIMESTER Performed By: #### P REGQNT #### [facility] [address] [place] [address] Dr. Mary Perera Vital Signs Date Time Vital Sign Value Performing Clinician Faci lity 12-21-2021 18:07-0500 Body weight 71.[address] ONIEL VIEIRA . [facility] Comment on above: Performed By: #### C BC #### [facility] [address] [place] [address] Dr. Mary Perera Encounters Encounter Date Encounter Type Care Provider Facility Start: 05-13-[address] ONIEL VIEIRA . Facili ty:[facility] Start: 05-10-2022 End: 05-10-[address] ONIEL VIEIRA . Facility:[facility] Start: 05-04-2022 End: 05-06-2022 Evaluation and management of inpatient DR ONIEL VIEIRA . Facility:[facility] Start: 04-15-2022 End: 04-15-[address] ONIEL VIEIRA . Facility:[facility] Start: 03-03-2022 End: 03-03-[address] MINNIE VARGAS . Facility:[facility] Start: 03-02-2022 End: 03-03-[address] ONIEL VIEIRA . Facility:[facility] Start: 02-18-2022 End: 02-19-[address] ONIEL VIEIRA . Facility:[facility] Start: 12-22-2021 End: 12-23-[address] ONIEL VIEIRA . Facility:[facility] Start: 12-15-2021 End: 12-16-[address] ONIEL VIEIRA . Facility:[facility] Start: 10-27-2021 End: 10-28-[address] ONIEL VIEIRA . Facility:[facility] Start: 10-12-2021 End: 10-12-[address] FOUZIA CASTILLO Facility:[facility] Start: 10-09-2021 End: 10-10-[address] ONIEL VIEIRA . Facility:[facility] Start: 07-15-2021 End: 07-16-[address] ONIEL VIEIRA . Facility:[facility] Start: 07-07-2021 End: 07-08-[address] BRITTANY GOULD . Facility:[facility] Start: 06-11-2021 End: 06-12-[address] ONIEL VIEIRA . Facility:[facility] Start: 06-04-2021 End: 06-05-[address] ONIEL VIEIRA . Facility:[facility] Start: 06-02-2021 End: 06-03-[address] ONIEL VIEIRA . Facility: Procedures Date Procedure Procedure Detail Performing Clinician Start: 05-04-2022 Delivery of Products of Conception, External Approach DR ONIEL VIEIRA . Start: 05-04-2022 Drainage of Amniotic Fluid, Therapeutic from Products of Conception, Via Natural or Artificial Opening DR ONIEL VIEIRA . Start: 05-04-2022 Introduction of Othe r Hormone into Peripheral Vein, Percutaneous Approach DR ONIEL VIEIRA . Start: 05-04-2022 Repair Perineum Skin , External Approach DR ONIEL VIEIRA . Payers Date Payer Category Payer Unknown [id number] 2.16.84 [id number] 1999 Unknown [id number] 2.16.84 0.1.618144.3.579.2.593 1999 Unknown [id number] 2.16.84 0.1.685549.3.579.2.593 1999 Unknown [id number] 2.16.84 0.1.045003.3.579.2.593 1999 Unknown [id number] 2.16.84 0.1.741010.3.579.2.593 1999 Unknown [id number] 2.16.84 0.1.388745.3.579.2.593 1999 Unknown [id number] 2.16.84 0.1.511515.3.579.2.593 1999 Unknown [id number] 2.16.84 0.1.793849.3.579.2.593 1999 Unknown [id number] 2.16.84 0.1.013214.3.579.2.593 1999 Unknown [id number] 2.16.84 0.1.111757.3.579.2.593 1999 Unknown [id number] 2.16.84 0.1.649580.3.579.2.593 1999 Unknown [id number] 2.16.84 0.1.131730.3.579.2.593 1999 Unknown [id number] 2.16.84 0.1.995796.3.579.2.593 1999 Unknown [id number] 2.16.84 0.1.817121.3.579.2.593 1999 Unknown [id number] 2.16.84 0.1.459568.3.579.2.593 1999 Unknown [id number] 2.16.84 0.1.349951.3.579.2.593 1999 Unknown [id number] 2.16.84 0.1.504827.3.579.2.593 1999 Unknown [id number] .16.84 0.1.788001.3.579.2.593 1999 Unknown [id number] 16.84 0.1.576118.3.579.2.593 1959 Self-pay 1959 Unknown [id number] 1959 Unknown [id number] Unknown [id number] 16. 0.1.558411.3.579.2.593 Summary Purpose Family History No Family History Records Found Advance Directives No Advanced Directives Records Found Additional Source Comments INFORMATION SOURCE (unrecogn ized section and content) DATE CREATED AUTHOR 05/19/2022 [facility] FOR RECORDS PERTAINING TO PATIENTS WHO ARE OR HAVE BEEN ENROLLED IN A CHEMICAL DEPENDENCY/SUBSTANCEABUSE PROGRAM, SOME INFORMATION MAY BE OMITTED. This clinical summary was aggregated from multiple sources. Caution should be exercised in using it in the provision of clinical care. This summary normalizes information from multiple sources, and as a consequence, information in this document may materially change the coding, format and clinical context of patient data. In addition, data may be omitted in some cases. CLINICAL DECISIONS SHOULD BE BASED ON THE PRIMARY CLINICAL RECORDS. [employer] provides no warranty or guarantee of the accuracy or completeness of information in this document.
[2023-07-08 07:08] LABS: HSV 1 IgG, Type Spec <0.91 index (0.00-0.90); HSV 2 IgG, Type Spec <0.91 index (0.00-0.90)
== END 2023-07-07 13:24 | disposition home or self-care (01) ==
LOC: LAB 13:25
PROVIDERS: PCP Nurse Practitioner Family; Visit Provider Nurse Practitioner Family
DX: Z20.2 Contact with and (suspected) exposure to infections with a predominantly sexual mode of transmission (principal)
CPT/HCPCS: 36415; 86695; 86696

== ENCOUNTER 2023-12-12 21:19 | Outpatient (REF) | payer BC, OTHER, SELFPAY ==
--- OUTSIDE RECORDS SUMMARY | 2023-12-12 21:26 | XMS_ITS | CCD ---
Author Organization [facility] Care Team Providers Care Associate Sales Manager Name Role Phone ISHA ., DR ENGLE Consulting Unavailable REQUEST, DR DE LEON LISTED Primary Care Unavaila ble ISHA ., DR ENGLE Attending Unavailable ISHA ., DR ENGLE Admitting Unavailable ZIEBER, DR INDIRA Gooden Consulting Unavailable REQUEST, DR DE LEON LISTED Primary Care Unavaila ble ISHA ., DR ENGLE Attending Unavailable ISHA ., DR ENGLE Admitting Unavailable ISHA ., DR ENGLE Consulting Unavailable ISHA ., DR ENGLE Attending Unavailable REQUEST, DR DE LEON LISTED Primary Care Unavaila ble ISHA ., DR ENGLE Admitting Unavailable CASTILLO, DR FOUZIA Gooden Attending Unavailable CASTILLO, DR FOUZIA Gooden Admitting Unavailable REQUEST, DR DE LEON LISTED Primary Care Unavaila ble CASTILLO, DR FOUZIA Gooden Consulting Unavailable ISHA ., DR ENGLE Consulting Unavailable ISHA ., DR ENGLE Attending Unavailable REQUEST, DR DE LEON LISTED Primary Care Unavaila ble ISHA ., DR ENLGE Admitting Unavailable ZIEBER, DR INDIRA Gooden Consulting Unavailable MARKER ., DR SOTO Attending Unavailable MARKER ., DR SOTO Admitting Unavailable REQUEST, DR DE LEON LISTED Primary Care Unavaila ble MARKER ., DR SOTO Consulting Unavailable CARLA MEDEROS Consulting Unavailable ISHA ., DR ENGLE Consulting Unavailable ISHA ., DR ENGLE Admitting Unavailable REQUEST, DR DE LEON LISTED Primary Care Unavaila ble ISHA ., DR ENGLE Attending Unavailable ELMA II, JESS Consulting Unavailable ISHA ., DR ENGLE Procedure Practitioner Unavail able ISHA ., DR ENGLE Consulting Unavailable ISHA ., DR ENGLE Attending Unavailable ISHA ., DR ENGLE Admitting Unavailable REQUEST, DR DE LEON LISTED Primary Care Unavaila ble ISHA ., DR ENGLE Admitting Unavailable WEST, DR EDMAR Mora Consulting Unavailable REQUEST, DR DE LEON LISTED Primary Care Unavaila ble ISHA ., DR ENGLE Attending Unavailable ISHA ., DR ENGLE Consulting Unavailable ISHA ., DR ENGLE Consulting Unavailable ISHA ., DR ENGLE Admitting Unavailable REQUEST, DR NONE LISTED Primary Care Unavaila ble ISHA ., DR ENGLE Attending Unavailable ISHA ., DR ENGLE Admitting Unavailable WEST, DR EDMAR Mora Consulting Unavailable REQUEST, DR NONE LISTED Primary Care Unavaila ble ISHA ., DR ENGLE Attending Unavailable ISHA ., DR ENGLE Consulting Unavailable ISHA ., DR ENGLE Consulting Unavailable ISHA ., DR ENGLE Admitting Unavailable REQUEST, DR NONE LISTED Primary Care Unavaila ble ISHA ., DR ENGLE Attending Unavailable ISHA ., DR ENGLE Consulting Unavailable REQUEST, DR NONE LISTED Primary Care Unavaila ble ISHA ., DR ENGLE Attending Unavailable ISHA ., DR ENGLE Admitting Unavailable ISHA ., DR ENGLE Consulting Unavailable REQUEST, DR NONE LISTED Primary Care Unavaila ble ISHA ., DR ENGLE Admitting Unavailable ISHA ., DR ENGLE Attending Unavailable ISHA ., DR ENGLE Admitting Unavailable REQUEST, DR NONE LISTED Primary Care Unavaila ble ISHA ., DR ENGLE Attending Unavailable ISHA ., DR ENGLE Consulting Unavailable REQUEST, DR NONE LISTED Primary Care Unavaila ble ISHA ., DR ENGLE Attending Unavailable ISHA ., DR ENGLE Admitting Unavailable ISHA ., DR ENGLE Admitting Unavailable ISHA ., DR ENGLE Consulting Unavailable REQUEST, DR NONE LISTED Primary Care Unavaila ble ISHA ., DR ENGLE Attending Unavailable ISHA ., DR ENGLE Admitting Unavailable REQUEST, DR NONE LISTED Primary Care Unavaila ble ISHA ., DR ENGLE Attending Unavailable DIAB ., AYUSH Admitting Unavailable REQUEST, NONE LISTED Primary Care Unavaila ble DIAB ., AYUSH Attending Unavailable KARASIK ., DR HARTMAN Attending Unavailabl e KARASIK ., DR HARTMAN Admitting Unavailabl e KARASIK ., DR HARTMAN Consulting Unavailabl e REQUEST, DR NONE LISTED Primary Care Unavaila ble FROYLAN, DARSHAN Attending Unavailable ISHA, ONIEL Attending Unavailable Unavailable Primary Care Provider Unavailabl e Problems Active Problems Problem Classification Problem Date [...] 05-05-2022 BASO # 0.0 103/ul Normal 0.0-0.1 [facility] Comment on above: Performed By: #### C BC #### [facility] [address] [place] [address] Dr. Mary Perera Basophils/100 WBC (Bld) 0.2 % Normal 0.2-2.0 [facility] Comment on above: Performed By: #### C BC #### [facility] [address] [place] [address] Dr. Mary Perera EO # 0.1 103/ul Normal 0.0-0.7 [facility] Comment on above: Performed By: #### C BC #### [facility] [address] [place] [address] Dr. Mary Perera Eosinophils/100 WBC (Bld) 0.8 % Critically low 0.9-7.0 [facility] Comment on above: Performed By: #### C BC #### [facility] [address] [place] [address] Dr. Mary Perera Erythrocyte distribution width (RBC) [Ratio] 14.3 % Normal 11.0-15.0 [facility] Comment on above: Performed By: #### C BC #### [facility] [address] [place] [address] Dr. Mary Perera Hematocrit (Bld) [Volume fraction] 36.0 % Normal 36.0-48.0 [facility] Comment on above: Performed By: #### C BC #### [facility] [address] [place] [address] Dr. Mary Perera Hemoglobin (Bld) [Mass/Vol] 12.3 g/dL Normal 12.0-16.0 [facility] Comment on above: Performed By: #### C BC #### [facility] [address] [place] [address] Dr. Mary Perera IG # 0.07 10e3/ul Critically high 0.00-0.03 [facility] Comment on above: Performed By: #### C BC #### [facility] [address] [place] [address] Dr. Mary Perera IG % 0.5 % Normal 0.0-0.5 [facility] Comment on above: Performed By: #### C BC #### [facility] [address] [place] [address] Dr. Mary Perera LYMPH # 2.2 103/ul Normal 1.2-3.8 [facility] Comment on above: Performed By: #### C BC #### [facility] [address] [place] [address] Dr. Mary Perera Lymphocytes/100 WBC (Bld) 15.3 % Critically low 20.5-60.0 [facility] Comment on above: Performed By: #### C BC #### [facility] [address] [place] [address] Dr. Mary Perera MANUAL DIFF REQ NO Normal [facility] Comment on above: Performed By: #### C BC #### [facility] [address] [address] [address] Mayr Perera MCH (RBC) [Entitic mass] 30.4 pg Normal 26.7-34.0 [facility] Comment on above: Performed By: #### C BC #### [facility] [address] [place] [address] Dr. Mary Perera MCHC (RBC) [Mass/Vol] 34.2 g/dL Normal 29.9-35.2 [facility] Comment on above: Performed By: #### C BC #### [facility] [address] [place] [address] Dr. Mary Perera MCV (RBC) [Entitic vol] 89.1 fL Normal 81.0-99.0 [facility] Comment on above: Performed By: #### C BC #### [facility] [address] [place] [address] Dr. Mary Perera MONO # 0.9 103/ul Critically high 0.3-0.8 [facility] Comment on above: Performed By: #### C BC #### [facility] [address] [place] [address] Dr. Mary Perera Monocytes/100 WBC (Bld) 6.4 % Normal 1.7-12.0 [facility] Comment on above: Performed By: #### C BC #### [facility] [address] [place] [address] Dr. Mary Perera NEUT # 10.9 103/ul Critically high 1.4-6.5 [facility] Comment on above: Performed By: #### C BC #### [facility] [address] [place] [address] Dr. Mary Perera Neutrophils/100 WBC (Bld) 76.8 % Critically high 43.0-75.0 [facility] Comment on above: Performed By: #### C BC #### [facility] [address] [place] [address] Dr. Mary Perera Platelet mean volume (Bld) [Entitic vol] 9.2 fL Critically low 9.5-13.5 [facility] Comment on above: Performed By: #### C BC #### [facility] [address] [place] [address] Dr. Mary Perera PLT 251 103/ul Normal 150-450 [facility] Comment on above: Performed By: #### C BC #### [facility] [address] [place] [address] Dr. Mary Perera RBC 4.04 106/ul Critically low 4.20-5.40 [facility] Comment on above: Performed By: #### C BC #### [facility] [address] [place] [address] Dr. Mary Perera WBC 14.2 103/ul Critically high 4.0-11.0 [facility] Comment on above: Performed By: #### C BC #### [facility] [address] [place] [address] Dr. Mary Perera CBC AUTO DIFFon 05-04-2022 BASO # 0.0 103/ul Normal 0.0-0.1 [facility] Comment on above: Performed By: #### P REGQNT #### [facility] [address] [place] [address] Dr. Mary Perera Basophils/100 WBC (Bld) 0.3 % Normal 0.2-2.0 [facility] Comment on above: Performed By: #### P REGQNT #### [facility] [address] [place] [address] Dr. Mary Perera EO # 0.1 103/ul Normal 0.0-0.7 [facility] Comment on above: Performed By: #### P REGQNT #### [facility] [address] [place] [address] Dr. Mary Perera Eosinophils/100 WBC (Bld) 1.2 % Normal 0.9-7.0 [facility] Comment on above: Performed By: #### P REGQNT #### [facility] [address] [place] [address] Dr. Mary Perera Erythrocyte distribution width (RBC) [Ratio] 14.1 % Normal 11.0-15.0 [facility] Comment on above: Performed By: #### P REGQNT #### [facility] [address] [place] [address] Dr. Mary Perera Hematocrit (Bld) [Volume fraction] 38.2 % Normal 36.0-48.0 [facility] Comment on above: Performed By: #### P REGQNT #### [facility] [address] [place] [address] Dr. Mary Perera Hemoglobin (Bld) [Mass/Vol] 13.2 g/dL Normal 12.0-16.0 [facility] Comment on above: Performed By: #### P REGQNT #### [facility] [address] [place] [address] Dr. Mary Perera IG # 0.08 10e3/ul Critically high 0.00-0.03 [facility] Comment on above: Performed By: #### P REGQNT #### [facility] [address] [place] [address] Dr. Mary Perera IG % 0.9 % Critically high 0.0-0.5 [facility] Comment on above: Performed By: #### P REGQNT #### [facility] [address] [place] [address] Dr. Mary Perera LYMPH # 2.8 103/ul Normal 1.2-3.8 [facility] Comment on above: Performed By: #### P REGQNT #### [facility] [address] [place] [address] Dr. Mary Perera Lymphocytes/100 WBC (Bld) 31.1 % Normal 20.5-60.0 [facility] Comment on above: Performed By: #### P REGQNT #### [facility] [address] [place] [address] Dr. Mary Perera MANUAL DIFF REQ NO Normal [facility] Comment on above: Performed By: #### P REGQNT #### [facility] [address] [place] [address] Dr. Mary Perera MCH (RBC) [Entitic mass] 30.8 pg Normal 26.7-34.0 [facility] Comment on above: Performed By: #### P REGQNT #### [facility] [address] [place] [address] Dr. Mary Perera MCHC (RBC) [Mass/Vol] 34.6 g/dL Normal 29.9-35.2 [facility] Comment on above: Performed By: #### P REGQNT #### [facility] [address] [place] [address] Dr. Mary Perera MCV (RBC) [Entitic vol] 89.3 fL Normal 81.0-99.0 [facility] Comment on above: Performed By: #### P REGQNT #### [facility] [address] [place] [address] Dr. Mary Perera MONO # 0.7 103/ul Normal 0.3-0.8 [facility] Comment on above: Performed By: #### P REGQNT #### [facility] [address] [place] [address] Dr. Mary Perera Monocytes/100 WBC (Bld) 7.9 % Normal 1.7-12.0 [facility] Comment on above: Performed By: #### P REGQNT #### [facility] [address] [place] [address] Dr. Mary Perera NEUT # 5.3 103/ul Normal 1.4-6.5 [facility] Comment on above: Performed By: #### P REGQNT #### [facility] [address] [place] [address] Dr. Mary Perera Neutrophils/100 WBC (Bld) 58.6 % Normal 43.0-75.0 [facility] Comment on above: Performed By: #### P REGQNT #### [facility] [address] [place] [address] Dr. Mary Perera Platelet mean volume (Bld) [Entitic vol] 9.3 fL Critically low 9.5-13.5 [facility] Comment on above: Performed By: #### P REGQNT #### [facility] [address] [address] [address] Mary Perera PLT 271 103/ul Normal 150-450 [facility] Comment on above: Performed By: #### P REGQNT #### [facility] [address] [address] [address] Mary Perera RBC 4.28 106/ul Normal 4.20-5.40 [facility] Comment on above: Performed By: #### P REGQNT #### [facility] [address] [address] [address] Mary Perera WBC 9.0 103/ul Normal 4.0-11.0 [facility] Comment on above: Performed By: #### P REGQNT #### [facility] [address] [place] [address] Dr. Mary Perera DRUG SCREEN RAPID (URINE)on 05-04-2022 AMP Negative Normal NEGATIVE [facility] Comment on above: Performed By: #### P REGQNT #### [facility] [address] [place] [address] Dr. Mary Perera BAR Negative Normal NEGATIVE [facility] Comment on above: Performed By: #### P REGQNT #### [facility] [address] [place] [address] Dr. Mary Perera BUP Negative Normal NEGATIVE [facility] Comment on above: Performed By: #### P REGQNT #### [facility] [address] [place] [address] Dr. Mary Perera BZO Negative Normal NEGATIVE [facility] Comment on above: Performed By: #### P REGQNT #### [facility] [address] [place] [address] Dr. Mary Perera JOSÉ LUIS Negative Normal NEGATIVE [facility] Comment on above: Performed By: #### P REGQNT #### [facility] [address] [place] [address] Dr. Mary Perera CUT-OFFS SEE BELOW Normal [facility] Comment on above: Result Comment: AMP (Amphetamine): [...] ng/mL Performed By: #### P REGQNT #### [facility] [address] [place] [address] Dr. Mary Perera DRUG CUT HEADER DRUG CLASS TEST SYSTEM CUT-OFF CONCENTRATIONS ARE FOLLOWS: Normal [facility] Comment on above: Performed By: #### P REGQNT #### [facility] [address] [place] [address] Dr. Mary Perera mAMP Negative Normal NEGATIVE [facility] Comment on above: Performed By: #### P REGQNT #### [facility] [address] [place] [address] Dr. Mary Perera MTD Negative Normal NEGATIVE [facility] Comment on above: Performed By: #### P REGQNT #### [facility] [address] [place] [address] Dr. Mary Perera OPI Negative Normal NEGATIVE [facility] Comment on above: Performed By: #### P REGQNT #### [facility] [address] [place] [address] Dr. Mary Perera OXY Negative Normal NEGATIVE [facility] Comment on above: Performed By: #### P REGQNT #### [facility] [address] [place] [address] Dr. Mary Perera PCP Negative Normal NEGATIVE [facility] Comment on above: Performed By: #### P REGQNT #### [facility] [address] [place] [address] Dr. Mary Perera PPX Negative Normal NEGATIVE [facility] Comment on above: Performed By: #### P REGQNT #### [facility] [address] [place] [address] Dr. Mary Perera TCA Negative Normal NEGATIVE [facility] Comment on above: Performed By: #### P REGQNT #### [facility] [address] [place] [address] Dr. Mary Perera THC Negative Normal NEGATIVE [facility] Comment on above: Performed By: #### P REGQNT #### [facility] [address] [place] [address] Dr. Mary Perera TYPE AND SCREENon 05-04-2022 TYPE AND SCREEN Negative Normal [facility] Comment on above: Performed By: #### T NS #### [facility] [address] [place] [address] Dr. Mary Perera GROUP B STREP CULTUREon S. agalactiae Ag Ql (Unsp spec) Culture Observations: Group B Strep called to Giselle Gardner/EMILEE at Dr. Vieira's office 04/19/22 @[address] [place] [address] Isolate 1 Streptococcus agalactiae Moderate growth of ORGANISM 1 Streptococcus agalactiae ANTIBIOTIC M.I.C RX STATUS Benzylpenicillin <=0.06 S F Ampicillin <=0.25 S F Cefotaxime <=0.12 S F Ceftriaxone <=0.12 S F Levofloxacin 0.5 S F Inducible Clindamycin Resistance Neg NEG F Erythromycin >=8 R F Clindamycin >=1 R F Linezolid <=2 S F Vancomycin 0.25 S F Tetracycline >=16 R F Normal [facility] Comment on above: Performed By: #### G BSCX #### [facility] [address] [place] [address] Dr. Mary Perera CULTURE URINEon 03-03-2022 CULTURE URINE Culture Observations : LIGHT GROWTH OF MIXED GENITAL DANTE. NO POTENTIAL PATHOGENS SEEN. Normal [facility] Comment on above: Performed By: #### C BC #### [facility] [address] [place] [address] Dr. Mary Perera UA (CLEAN/CATCH) SHOWCASE TRIMMER/MICRO I F IND.on 03-03-2022 Bilirubin Ql (U) Negative Normal NEGATIVE [facility] Comment on above: Performed By: #### C MP #### [facility] [address] [place] [address] Dr. Mary Perera Clarity (U) CLEAR Normal CLEAR [facility] Comment on above: Performed By: #### C MP #### [facility] [address] [place] [address] Dr. Mary Perera Color (U) LT. YELLOW Normal YELLOW [facility] Comment on above: Performed By: #### C MP #### [facility] [address] [place] [address] Dr. Mary Perera Glucose Ql (U) Negative Normal NEGATIVE [facility] Comment on above: Performed By: #### C MP #### [facility] [address] [place] [address] Dr. Mary Perera Hemoglobin Ql (U) Negative Normal NEGATIVE [facility] Comment on above: Performed By: #### C MP #### [facility] [address] [place] [address] Dr. Mary Perera Ketones Ql (U) Negative Normal NEGATIVE [facility] Comment on above: Performed By: #### C MP #### [facility] [address] [place] [address] Dr. Mary Perera LEUKOCYTES LARGE Abnormal NEGATIVE [facility] Comment on above: Performed By: #### C MP #### [facility] [address] [place] [address] Dr. Mary Perera Nitrite Ql (U) Negative Normal NEGATIVE [facility] Comment on above: Performed By: #### C MP #### [facility] [address] [place] [address] Dr. Mary Perera pH (U) 6.0 [pH] Normal 5-9 [facility] Comment on above: Performed By: #### C MP #### [facility] [address] [place] [address] Dr. Mary Perera SPEC GRAVITY 1.020 Normal 1.005-<=1.025 [facility] Comment on above: Performed By: #### C MP #### [facility] [address] [place] [address] Dr. Mary Perera UA PROTEIN Negative Normal NEGATIVE/ TRACE [facility] Comment on above: Performed By: #### C MP #### [facility] [address] [place] [address] Dr. Mary Perera UR MICRO IND INDICATED Normal [facility] Comment on above: Performed By: #### C MP #### [facility] [address] [place] [address] Dr. Mary Perera Urobilinogen Qn (U) 0.2 {Tung'U}/dL Normal 0.2 - 1. 0 [facility] Comment on above: Performed By: #### C MP #### [facility] [address] [place] [address] Dr. Mary Perera URINE MICROSCOPIC ONLYon BACTERIA SMALL Abnormal NONE SEEN [facility] Comment on above: Performed By: #### C MP #### [facility] [address] [place] [address] Dr. Mary Perera Bacteria identified Cx Nom (U) INDICATED Normal [facility] Comment on above: Performed By: #### C MP #### [facility] [address] [place] [address] Dr. Mary Perera CAST NONE SEEN Normal NONE SEEN [facility] Comment on above: Performed By: #### C MP #### [facility] [address] [place] [address] Dr. Mary Perera Crystals LM Nom (Urine sed) NONE SEEN Normal NONE SEEN [facility] Comment on above: Performed By: #### C MP #### [facility] [address] [place] [address] Dr. Mary Perera Epithelial cells LM Ql (Urine sed) MODERATE Abnormal NONE SEEN /RARE [facility] Comment on above: Performed By: #### C MP #### [facility] [address] [place] [address] Dr. Mary Perera MUCOUS NONE SEEN Normal NONE SEEN [facility] Comment on above: Performed By: #### C MP #### [facility] [address] [place] [address] Dr. Mary Perera RBC 5-10 Abnormal 0-2 [facility] Comment on above: Performed By: #### C MP #### [facility] [address] [address] [address] Mary Perear WBC 10-20 Abnormal NONE SEEN [facility] Comment on above: Performed By: #### C MP #### [facility] [id number] Mary Perera US PREG GROWTHon 03-02-2022 [...] EDMAR HOOKS Date: 2022-03-02 16:20 Normal [facility] CBC AUTO DIFFon 02-18-2022 BASO # 0.0 103/ul Normal 0.0-0.1 [facility] Comment on above: Performed By: #### C BC #### [facility] [address] [address] [address] Mary Perera Basophils/100 WBC (Bld) 0.4 % Normal 0.2-2.0 [facility] Comment on above: Performed By: #### C BC #### [facility] [address] [address] [address] Mary Perera EO # 0.2 103/ul Normal 0.0-0.7 [facility] Comment on above: Performed By: #### C BC #### [facility] [address] [address] [address] Mary Perera Eosinophils/100 WBC (Bld) 1.8 % Normal 0.9-7.0 [facility] Comment on above: Performed By: #### C BC #### [facility] [address] [place] [address] Dr. Mary Perera Erythrocyte distribution width (RBC) [Ratio] 13.4 % Normal 11.0-15.0 [facility] Comment on above: Performed By: #### C BC #### [facility] [address] [place] [address] Dr. Mary Perera Hematocrit (Bld) [Volume fraction] 34.9 % Critically low 36.0-48.0 [facility] Comment on above: Performed By: #### C BC #### [facility] [address] [place] [address] Dr. Mary Perera Hemoglobin (Bld) [Mass/Vol] 12.1 g/dL Normal 12.0-16.0 [facility] Comment on above: Performed By: #### C BC #### [facility] [address] [place] [address] Dr. Mary Perera IG # 0.11 10e3/ul Critically high 0.00-0.03 [facility] Comment on above: Performed By: #### C BC #### [facility] [address] [place] [address] Dr. Mary Perera IG % 1.1 % Critically high 0.0-0.5 [facility] Comment on above: Performed By: #### C BC #### [facility] [address] [place] [address] Dr. Mary Perera LYMPH # 2.0 103/ul Normal 1.2-3.8 [facility] Comment on above: Performed By: #### C BC #### [facility] [address] [place] [address] Dr. Mary Perera Lymphocytes/100 WBC (Bld) 20.3 % Critically low 20.5-60.0 [facility] Comment on above: Performed By: #### C BC #### [facility] [address] [place] [address] Dr. aMry Perera MANUAL DIFF REQ NO Normal [facility] Comment on above: Performed By: #### C BC #### [facility] [address] [place] [address] Dr. Mary Perera MCH (RBC) [Entitic mass] 31.5 pg Normal 26.7-34.0 [facility] Comment on above: Performed By: #### C BC #### [facility] [address] [place] [address] Dr. Mary Perera MCHC (RBC) [Mass/Vol] 34.7 g/dL Normal 29.9-35.2 [facility] Comment on above: Performed By: #### C BC #### [facility] [address] [place] [address] Dr. Mary Perera MCV (RBC) [Entitic vol] 90.9 fL Normal 81.0-99.0 [facility] Comment on above: Performed By: #### C BC #### [facility] [address] [place] [address] Dr. Mary Perera MONO # 0.6 103/ul Normal 0.3-0.8 [facility] Comment on above: Performed By: #### C BC #### [facility] [address] [place] [address] Dr. Mary Perera Monocytes/100 WBC (Bld) 6.3 % Normal 1.7-12.0 [facility] Comment on above: Performed By: #### C BC #### [facility] [address] [place] [address] Dr. Mary Perera NEUT # 7.0 103/ul Critically high 1.4-6.5 [facility] Comment on above: Performed By: #### C BC #### [facility] [address] [place] [address] Dr. Mary Perera Neutrophils/100 WBC (Bld) 70.1 % Normal 43.0-75.0 [facility] Comment on above: Performed By: #### C BC #### [facility] [address] [address] [address] Mary Perera Platelet mean volume (Bld) [Entitic vol] 9.2 fL Critically low 9.5-13.5 [facility] Comment on above: Performed By: #### C BC #### [facility] [address] [address] [address] Mary Perera PLT 252 103/ul Normal 150-450 [facility] Comment on above: Performed By: #### C BC #### [facility] [address] [address] [address] Mary Perera RBC 3.84 106/ul Critically low 4.20-5.40 [facility] Comment on above: Performed By: #### C BC #### [facility] [address] [address] [address] Mary Perera WBC 10.0 103/ul Normal 4.0-11.0 [facility] Comment on above: Performed By: #### C BC #### [facility] [address] [address] [address] Mary Perera GLUCOSE - 1HRon 02-18-2022 Glucose [Mass/Vol] 106 mg/dL Normal 74-106 [facility] Comment on above: Performed By: #### C BC #### [facility] [address] [place] [address] Dr. Mary Perera US PREG ANATOMY SINGLEon [...] EDMAR HOOKS Date: 2021-12-22 19:05 Normal [facility] AFP MATERNAL FOR SPINA BIFID Aon 12-21-2021 AFP MoM 0.53 Normal [facility] Comment on above: Performed By: #### C BC #### [facility] [address] [address] [address] Mary Perera AFP Value 27.5 ng/mL Normal [facility] Comment on above: Performed By: #### C BC #### [facility] [address] [address] [address] Mary Perera AFP, Serum for Spina Bifida Report Normal [facility] Comment on above: Performed By: #### C BC #### [facility] [address] [address] [address] Mary Perera Comment Comment Normal [facility] Comment on above: Result Comment: Florina Cordero, Ph.D., [facility] Director . References: Available Upon Request. . Multiples Of Median Cutoffs For AFP Elevations Nash 2.5 Black 2.8 IDD 2.0 Twins 4.5 Abbreviation Definitions IDD - Insulin Dep Diabetes OSBR - Open Spina Bifida Risk . For further inquiries contact [facility] at [phone]. . This test was developed and its performance characteristics determined by [employer]. It has not been cleared or approved by the Food and Drug Administration. Performed By: #### C BC #### [facility] [address] [address] [address] Mary Covarrubias Age Collection Date 19.3 weeks Normal [facility] Comment on above: Performed By: #### C BC #### [facility] [address] [address] [address] Mary Perera Gestat, Age Based on RC Normal [facility] Comment on above: Result Comment: 04/15 Recalculations are not recommended when gestational dating by LMP and ultrasound are within 10 days. Performed By: #### C BC #### [facility] [address] [place] [address] Dr. Mary Perera Insulin Dep Diabetes No Normal [facility] Comment on above: Performed By: #### C BC #### [facility] [address] [place] [address] Dr. Mary Perera Interpretation Comment Normal [facility] Comment on above: Result Comment: Inte [...] Customer Services to discuss available options. The [employer] recommends amniocentesis be offered to women age 35 and older. Performed By: #### C BC #### [facility] [address] [place] [address] Dr. Mary Perera [age] Normal [facility] Comment on above: Performed By: #### C BC #### [facility] [address] [place] [address] Dr. Mary Perera Multiple Gestation No Normal [facility] Comment on above: Performed By: #### C BC #### [facility] [address] [place] [address] Dr. Mary Perera OSBR Risk 1 [place] [address] Normal [facility] Comment on above: Performed By: #### C BC #### [facility] [address] [place] [address] Dr. Mary Perera PDF . Normal [facility] Comment on above: Performed By: #### C BC #### [facility] [address] [place] [address] Dr. Mary Perera Race Normal [facility] Comment on above: Performed By: #### C BC #### [facility] [address] [place] [address] Dr. Mary Perera Test Results: Negative Normal [facility] Comment on above: Performed By: #### C BC #### [facility] [address] [place] [address] Dr. Mary Perera CULTURE URINEon 10-29-2021 CULTURE [...] S F Tetracycline >=16 R F Normal [facility] Comment on above: Performed By: #### U RCX #### [facility] [address] [place] [address] Dr. Mary Perera HEP B SURFACE ANTIGEN SCREEN on 10-28-2021 HBsAg Screen Negative Normal Negative [facility] Comment on above: Performed By: #### P REGQNT #### [facility] [address] [place] [address] Dr. Mary Perera HEPATITIS C VIRUS AB W/ REFL EX QUANTon 10-28-2021 HCV AB <0.1 Normal 0.0-0.9 [facility] Comment on above: Performed By: #### C MP #### [facility] [address] [place] [address] Dr. Mary Perera Interpretation: Comment Normal [facility] Comment on above: Result Comment: Nega tive Not infected with HCV, unless recent infection is suspected or other evidence exists to indicate HCV infection. Performed By: #### C MP #### [facility] [address] [place] [address] Dr. Mary Perera HIV 1 AND 2 WITH REFLEXon HIV Screen 4th Generation wRfx Non-Reactive Normal Non Reactive [facility] Comment on above: Result Comment: HIV Negative HIV-1/HIV-2 antibodies and HIV-1 p24 antigen were NOT detected. There is no laboratory evidence of HIV infection. Performed By: #### C MP #### [facility] [address] [place] [address] Dr. Mary Perera RPR QUANTon 10-28-2021 Rapid Plasma Reagin, Quant Non-Reactive Normal NonRea<1:1 [facility] Comment on above: Result Comment: Plea se Note: This test does not meet current guidelines for screening and diagnosis of syphilis. This test is intended for following treatment response in patients being treated for syphilis infection. To screen for syphilis infection, a reflex cascade that includes both RPR and a treponema-specific assay should be utilized, such as Treponema pallidum (Syphilis) Screening [place] (906363) or Rapid Plasma Reagin (RPR) Test With Reflex to Quantitative RPR and Confirmatory Treponema pallidum Antibodies (928189). Performed By: #### C MP #### [facility] [address] [place] [address] Dr. Mary Perera RUBELLA AB IGGon 10-28-2021 Rubella Antibodies, IgG 13.20 index Normal Immune >0.99 [facility] Comment on above: Result Comment: Non- immune <0.90 Equivocal 0.90 - 0.99 Immune >0.99 Performed By: #### R UBIGG #### [facility] [address] [place] [address] Dr. Mary Perera CBC AUTO DIFFon 10-27-2021 BASO # 0.1 103/ul Normal 0.0-0.1 [facility] Comment on above: Performed By: #### P REGQNT #### [facility] [address] [place] [address] Dr. Mary Perera Basophils/100 WBC (Bld) 0.6 % Normal 0.2-2.0 [facility] Comment on above: Performed By: #### P REGQNT #### [facility] [address] [place] [address] Dr. Mary Perera EO # 0.3 103/ul Normal 0.0-0.7 [facility] Comment on above: Performed By: #### P REGQNT #### [facility] [address] [place] [address] Dr. Mary Perera Eosinophils/100 WBC (Bld) 3.4 % Normal 0.9-7.0 [facility] Comment on above: Performed By: #### P REGQNT #### [facility] [address] [place] [address] Dr. Mary Perera Erythrocyte distribution width (RBC) [Ratio] 13.3 % Normal 11.0-15.0 [facility] Comment on above: Performed By: #### P REGQNT #### [facility] [address] [place] [address] Dr. Mary Perera Hematocrit (Bld) [Volume fraction] 40.2 % Normal 36.0-48.0 [facility] Comment on above: Performed By: #### P REGQNT #### [facility] [address] [place] [address] Dr. Mary Perera Hemoglobin (Bld) [Mass/Vol] 13.7 g/dL Normal 12.0-16.0 [facility] Comment on above: Performed By: #### P REGQNT #### [facility] [address] [place] [address] Dr. Mary Perera IG # 0.05 10e3/ul Critically high 0.00-0.03 [facility] Comment on above: Performed By: #### P REGQNT #### [facility] [address] [place] [address] Dr. Mary Perera IG % 0.5 % Normal 0.0-0.5 [facility] Comment on above: Performed By: #### P REGQNT #### [facility] [address] [place] [address] Dr. Mary Perera LYMPH # 2.2 103/ul Normal 1.2-3.8 [facility] Comment on above: Performed By: #### P REGQNT #### [facility] [address] [place] [address] Dr. Mary Perera Lymphocytes/100 WBC (Bld) 22.3 % Normal 20.5-60.0 [facility] Comment on above: Performed By: #### P REGQNT #### [facility] [address] [place] [address] Dr. Mary Perera MANUAL DIFF REQ NO Normal [facility] Comment on above: Performed By: #### P REGQNT #### [facility] [address] [place] [address] Dr. Mary Perera MCH (RBC) [Entitic mass] 29.0 pg Normal 26.7-34.0 [facility] Comment on above: Performed By: #### P REGQNT #### [facility] [address] [place] [address] Dr. Mary Perera MCHC (RBC) [Mass/Vol] 34.1 g/dL Normal 29.9-35.2 [facility] Comment on above: Performed By: #### P REGQNT #### [facility] [address] [place] [address] Dr. Mary Perera MCV (RBC) [Entitic vol] 85.2 fL Normal 81.0-99.0 [facility] Comment on above: Performed By: #### P REGQNT #### [facility] [address] [place] [address] Dr. Mary Perera MONO # 0.6 103/ul Normal 0.3-0.8 [facility] Comment on above: Performed By: #### P REGQNT #### [facility] [address] [place] [address] Dr. Mary Perera Monocytes/100 WBC (Bld) 6.4 % Normal 1.7-12.0 [facility] Comment on above: Performed By: #### P REGQNT #### [facility] [address] [address] [address] Mary Perera NEUT # 6.6 103/ul Critically high 1.4-6.5 [facility] Comment on above: Performed By: #### P REGQNT #### [facility] [address] [place] [address] Dr. Mary Perera Neutrophils/100 WBC (Bld) 66.8 % Normal 43.0-75.0 [facility] Comment on above: Performed By: #### P REGQNT #### [facility] [address] [place] [address] Dr. Mary Perera Platelet mean volume (Bld) [Entitic vol] 9.2 fL Critically low 9.5-13.5 [facility] Comment on above: Performed By: #### P REGQNT #### [facility] [address] [place] [address] Dr. Mary Perera PLT 309 103/ul Normal 150-450 [facility] Comment on above: Performed By: #### P REGQNT #### [facility] [address] [place] [address] Dr. Mary Perera RBC 4.72 106/ul Normal 4.20-5.40 [facility] Comment on above: Performed By: #### P REGQNT #### [facility] [address] [place] [address] Dr. Mary Perera WBC 9.9 103/ul Normal 4.0-11.0 [facility] Comment on above: Performed By: #### P REGQNT #### [facility] [address] [place] [address] Dr. Mary Perera GLYCOHEMOGLOBIN A1Con 2021 ADA RECOMMENDATION SEE BELOW Normal [facility] Comment on above: Result Comment: ADA RECOMMENDED LIMIT 4.0 - 6.0 ADA THERAPEUTIC TARGET < 7.0 ACTION SUGGESTED > 7.0 Performed By: #### P REGQNT #### [facility] [address] [place] [address] Dr. Mary Perera Glucose [Mass/Vol] 94 mg/dL Normal [facility] Comment on above: Performed By: #### P REGQNT #### [facility] [address] [place] [address] Dr. Mary Perera HbA1c (Bld) [Mass fraction] 4.9 % Normal 4.5-6.2 [facility] Comment on above: Performed By: #### P REGQNT #### [facility] [address] [place] [address] Dr. Mary Perera JAMES BOX TEST PT SEND OUTo n 10-27-2021 SENT TO REF LAB 10/27/2021 Normal [facility] Comment on above: Performed By: #### N BOX #### [facility] [address] [place] [address] Dr. Mary Perera TYPE AND SCREENon 10-27-2021 TYPE AND SCREEN Negative Normal [facility] Comment on above: Performed By: #### T NS #### [facility] [address] [place] [address] Dr. Mary Perera CBC AUTO DIFFon 10-12-2021 BASO # 0.1 103/ul Normal 0.0-0.1 [facility] Comment on above: Performed By: #### C BC #### [facility] [address] [place] [address] Dr. Mary Perera Basophils/100 WBC (Bld) 0.4 % Normal 0.2-2.0 [facility] Comment on above: Performed By: #### C BC #### [facility] [address] [place] [address] Dr. Mary Perera EO # 0.2 103/ul Normal 0.0-0.7 [facility] Comment on above: Performed By: #### C BC #### [facility] [address] [place] [address] Dr. Mary Perera Eosinophils/100 WBC (Bld) 1.1 % Normal 0.9-7.0 [facility] Comment on above: Performed By: #### C BC #### [facility] [address] [place] [address] Dr. Mary Perera Erythrocyte distribution width (RBC) [Ratio] 13.0 % Normal 11.0-15.0 [facility] Comment on above: Performed By: #### C BC #### [facility] [address] [place] [address] Dr. Mary Perera Hematocrit (Bld) [Volume fraction] 37.3 % Normal 36.0-48.0 [facility] Comment on above: Performed By: #### C BC #### [facility] [facility] [address] [place] [address] Dr. Mary Perera Hemoglobin (Bld) [Mass/Vol] 13.1 g/dL Normal 12.0-16.0 [facility] Comment on above: Performed By: #### C BC #### [facility] [address] [place] [address] Dr. Mary Perera IG # 0.06 10e3/ul Critically high 0.00-0.03 [facility] Comment on above: Performed By: #### C BC #### [facility] [address] [place] [address] Dr. Mary Perera IG % 0.4 % Normal 0.0-0.5 [facility] Comment on above: Performed By: #### C BC #### [facility] [address] [place] [address] Dr. Mary Perera LYMPH # 3.5 103/ul Normal 1.2-3.8 [facility] Comment on above: Performed By: #### C BC #### [facility] [address] [place] [address] Dr. Mary Perera Lymphocytes/100 WBC (Bld) 24.8 % Normal 20.5-60.0 [facility] Comment on above: Performed By: #### C BC #### [facility] [address] [place] [address] Dr. Mary Perera MANUAL DIFF REQ NO Normal [facility] Comment on above: Performed By: #### C BC #### [facility] [address] [address] [address] Mary Perera MCH (RBC) [Entitic mass] 29.8 pg Normal 26.7-34.0 [facility] Comment on above: Performed By: #### C BC #### [facility] [address] [place] [address] Dr. Mary Perera MCHC (RBC) [Mass/Vol] 35.1 g/dL Normal 29.9-35.2 [facility] Comment on above: Performed By: #### C BC #### [facility] [address] [place] [address] Dr. Mary Perera MCV (RBC) [Entitic vol] 84.8 fL Normal 81.0-99.0 [facility] Comment on above: Performed By: #### C BC #### [facility] [address] [place] [address] Dr. Mary Perera MONO # 1.0 103/ul Critically high 0.3-0.8 [facility] Comment on above: Performed By: #### C BC #### [facility] [address] [place] [address] Dr. Mary Perera Monocytes/100 WBC (Bld) 7.0 % Normal 1.7-12.0 [facility] Comment on above: Performed By: #### C BC #### [facility] [address] [place] [address] Dr. Mary Perera NEUT # 9.4 103/ul Critically high 1.4-6.5 [facility] Comment on above: Performed By: #### C BC #### [facility] [address] [place] [address] Dr. Mary Perera Neutrophils/100 WBC (Bld) 66.3 % Normal 43.0-75.0 [facility] Comment on above: Performed By: #### C BC #### [facility] [address] [place] [address] Dr. Mary Perera Platelet mean volume (Bld) [Entitic vol] 9.4 fL Critically low 9.5-13.5 [facility] Comment on above: Performed By: #### C BC #### [facility] [address] [address] [address] Mary Perera PLT 292 103/ul Normal 150-450 [facility] Comment on above: Performed By: #### C BC #### [facility] [address] [place] [address] Dr. Mary Perera RBC 4.40 106/ul Normal 4.20-5.40 [facility] Comment on above: Performed By: #### C BC #### [facility] [address] [address] [address] Mary Perera WBC 14.2 103/ul Critically high 4.0-11.0 [facility] Comment on above: Performed By: #### C BC #### [facility] [address] [place] [address] Dr. Mary Preera PROF 14(COMP METB)on 022 Albumin [Mass/Vol] 3.5 g/dL Normal 3.4-5.0 [facility] Comment on above: Performed By: #### P REGQNT #### [facility] [address] [place] [address] Dr. Mary Perera Albumin/Globulin [Mass ratio] 0.9 {ratio} Normal [facility] Comment on above: Performed By: #### P REGQNT #### [facility] [address] [place] [address] Dr. Mary Perera ALP [Catalytic activity/Vol] 66 U/L Normal 46-116 [facility] Comment on above: Performed By: #### P REGQNT #### [facility] [address] [place] [address] Dr. Mary Perera ALT [Catalytic activity/Vol] 22 U/L Normal 14-59 [facility] Comment on above: Performed By: #### P REGQNT #### [facility] [address] [place] [address] Dr. Mary Perera Anion gap [Moles/Vol] 12.2 mmol/L Normal [facility] Comment on above: Performed By: #### P REGQNT #### [facility] [address] [address] [address] Mary Perera AST [Catalytic activity/Vol] 13 U/L Critically low 15-37 [facility] Comment on above: Performed By: #### P REGQNT #### [facility] [address] [place] [address] Dr. Mary Perera Bilirubin [Mass/Vol] 0.2 mg/dL Normal 0.2-1.0 [facility] Comment on above: Performed By: #### P REGQNT #### [facility] [address] [place] [address] Dr. Mary Perera Calcium [Mass/Vol] 8.8 mg/dL Normal 8.5-10.1 [facility] Comment on above: Performed By: #### P REGQNT #### [facility] [address] [place] [address] Dr. Mary Perera Chloride [Moles/Vol] 101 mmol/L Normal 98-107 [facility] Comment on above: Performed By: #### P REGQNT #### [facility] [address] [place] [address] Dr. Mary Perera CO2 [Moles/Vol] 24.3 mmol/L Normal 21.0-32.0 [facility] Comment on above: Performed By: #### P REGQNT #### [facility] [address] [place] [address] Dr. Mary Perera Creatinine [Mass/Vol] 0.53 mg/dL Critically low 0.55-1.02 [facility] Comment on above: Performed By: #### P REGQNT #### [facility] [address] [place] [address] Dr. Mary Perera EGFR-AF PRYDEINIG >60 Normal >=60 [facility] Comment on above: Performed By: #### P REGQNT #### [facility] [address] [place] [address] Dr. Mary Perera EGFR-NON AF PRYDEINIG >60 Normal >=60 [facility] Comment on above: Performed By: #### P REGQNT #### [facility] [address] [place] [address] Dr. Mary Perera Globulin (S) [Mass/Vol] 3.8 g/dL Normal [facility] Comment on above: Performed By: #### P REGQNT #### [facility] [address] [address] [address] Mary Perera Glucose [Mass/Vol] 90 mg/dL Normal 74-106 [facility] Comment on above: Performed By: #### P REGQNT #### [facility] [address] [address] [address] Mary Perera Potassium [Moles/Vol] 3.5 mmol/L Normal 3.5-5.1 [facility] Comment on above: Performed By: #### P REGQNT #### [facility] [address] [address] [address] Mary Perera Protein [Mass/Vol] 7.3 g/dL Normal 6.4-8.2 [facility] Comment on above: Performed By: #### P REGQNT #### [facility] [address] [address] [address] Mary Perera Sodium [Moles/Vol] 134 mmol/L Critically low 136-145 [facility] Comment on above: Performed By: #### P REGQNT #### [facility] [address] [address] [address] Mary Perera Urea nitrogen [Mass/Vol] 7.0 mg/dL Normal 7.0-18.0 [facility] Comment on above: Performed By: #### P REGQNT #### [facility] [address] [address] [address] Mary Perera Urea nitrogen/Creatinine [Mass ratio] 13.2 mg/mg Normal [facility] Comment on above: Performed By: #### P REGQNT #### [facility] [address] [address] [address] Mary Perera PROTIMEon 10-12-2021 INR Coag (PPP) [Relative time] 0.95 {INR} Normal [facility] Comment on above: Performed By: #### C MP #### [facility] [address] [address] [address] Mary Perera INR GUIDELINES SEE BELOW Normal [facility] Comment on above: Result Comment: RODNEY RED INR: 2.0 - 3.0 CONDITIONS NOT LISTED BELOW 2.5 - 3.5 FOR PROSTHETIC HEART VALVE REPLACEMENT 2.5 - 3.5 RECURRENT THROMBOSIS Performed By: #### C MP #### [facility] [address] [address] [address] Mary Perera PT Coag (PPP) [Time] 10.3 s Normal 9.0-11.6 [facility] Comment on above: Performed By: #### C MP #### [facility] [address] [address] [address] Mary Perera PTTon 10-12-2021 aPTT Coag (Bld) [Time] 30.4 s Normal 22.3-36.2 [facility] Comment on above: Performed By: #### C MP #### [facility] [address] [address] [address] Mary Perera US PREG TVon 10-09-2021 [...] INDIRA TOVAR Date: 2021-10-09 17:14 Normal [facility] US PREG TVon 07-15-2021 US PREG TV [...] INDIRA TOVAR Date: 2021-07-15 11:20 Normal [facility] ABO AND RH TYPEon 07-07-2021 ABO and Rh group Nom (Bld) ABO Rh Typing O Rh Positive Normal [facility] Comment on above: Performed By: #### C BC #### [facility] [address] [place] [address] Dr. Mary Perera CBC AUTO DIFFon 07-07-2021 BASO # 0.0 103/ul Normal 0.0-0.1 [facility] Comment on above: Performed By: #### C MP #### [facility] [address] [place] [address] Dr. Mary Perera Basophils/100 WBC (Bld) 0.6 % Normal 0.2-2.0 [facility] Comment on above: Performed By: #### C MP #### [facility] [address] [place] [address] Dr. Mary Perera EO # 0.1 103/ul Normal 0.0-0.7 [facility] Comment on above: Performed By: #### C MP #### [facility] [address] [place] [address] Dr. Mary Perera Eosinophils/100 WBC (Bld) 1.5 % Normal 0.9-7.0 [facility] Comment on above: Performed By: #### C MP #### [facility] [address] [place] [address] Dr. Mary Perera Erythrocyte distribution width (RBC) [Ratio] 14.6 % Normal 11.0-15.0 [facility] Comment on above: Performed By: #### C MP #### [facility] [address] [place] [address] Dr. Mary Perera Hematocrit (Bld) [Volume fraction] 36.2 % Normal 36.0-48.0 [facility] Comment on above: Performed By: #### C MP #### [facility] [address] [place] [address] Dr. Mary Perera Hemoglobin (Bld) [Mass/Vol] 12.3 g/dL Normal 12.0-16.0 [facility] Comment on above: Performed By: #### C MP #### [facility] [address] [place] [address] Dr. Mary Perera IG # 0.01 10e3/ul Normal 0.00-0.03 [facility] Comment on above: Performed By: #### C MP #### [facility] [address] [place] [address] Dr. Mary Perera IG % 0.1 % Normal 0.0-0.5 [facility] Comment on above: Performed By: #### C MP #### [facility] [address] [place] [address] Dr. Mary Perera LYMPH # 3.0 103/ul Normal 1.2-3.8 [facility] Comment on above: Performed By: #### C MP #### [facility] [address] [place] [address] Dr. Mary Perera Lymphocytes/100 WBC (Bld) 42.1 % Normal 20.5-60.0 [facility] Comment on above: Performed By: #### C MP #### [facility] [address] [place] [address] Dr. Mary Perera MANUAL DIFF REQ NO Normal [facility] Comment on above: Performed By: #### C MP #### [facility] [address] [place] [address] Dr. Mary Perera MCH (RBC) [Entitic mass] 28.5 pg Normal 26.7-34.0 [facility] Comment on above: Performed By: #### C MP #### [facility] [address] [place] [address] Dr. Mary Perera MCHC (RBC) [Mass/Vol] 34.0 g/dL Normal 29.9-35.2 [facility] Comment on above: Performed By: #### C MP #### [facility] [address] [address] [address] Mary Perera MCV (RBC) [Entitic vol] 84.0 fL Normal 81.0-99.0 [facility] Comment on above: Performed By: #### C MP #### [facility] [address] [address] [address] Mary Perera MONO # 0.5 103/ul Normal 0.3-0.8 [facility] Comment on above: Performed By: #### C MP #### [facility] [address] [address] [address] Mary Perera Monocytes/100 WBC (Bld) 7.5 % Normal 1.7-12.0 [facility] Comment on above: Performed By: #### C MP #### [facility] [address] [address] [address] Mary Perera NEUT # 3.5 103/ul Normal 1.4-6.5 [facility] Comment on above: Performed By: #### C MP #### [facility] [address] [address] [address] Mary Perera Neutrophils/100 WBC (Bld) 48.2 % Normal 43.0-75.0 [facility] Comment on above: Performed By: #### C MP #### [facility] [address] [address] [address] Mary Perera Platelet mean volume (Bld) [Entitic vol] 9.3 fL Critically low 9.5-13.5 [facility] Comment on above: Performed By: #### C MP #### [facility] [address] [address] [address] Mary Perera PLT 275 103/ul Normal 150-450 [facility] Comment on above: Performed By: #### C MP #### [facility] [address] [address] [address] Mary Perera RBC 4.31 106/ul Normal 4.20-5.40 [facility] Comment on above: Performed By: #### C MP #### [facility] [address] [address] [address] Mary Perera WBC 7.2 103/ul Normal 4.0-11.0 [facility] Comment on above: Performed By: #### C MP #### [facility] [address] [address] [address] Mary Perera PREG QUANT HCGon 07-07-2021 HCG QUANT 58520 mIU/mL Normal [facility] Comment on above: Performed By: #### P REGQNT #### [facility] [address] [place] [address] Dr. Mary Perera HCG RANGE SEE BELOW Normal [facility] Comment on above: Result Comment: 5-50 0-1 WEEK 40-300 1-2 WEEKS 100-1,000 2-3 WEEKS 500-6,000 3-4 WEEKS 5,000-200,000 1-2 MONTHS 10,000-100,000 2-3 MONTHS 3,000-50,000 2ND TRIMESTER 1,000-50,000 3RD TRIMESTER Performed By: #### P REGQNT #### [facility] [address] [place] [address] Dr. Mary Perera PROF 14(COMP METB)on 022 Albumin [Mass/Vol] 4.0 g/dL Normal 3.4-5.0 [facility] Comment on above: Performed By: #### C MP #### [facility] [address] [place] [address] Dr. Mary Perera Albumin/Globulin [Mass ratio] 1.2 {ratio} Normal [facility] Comment on above: Performed By: #### C MP #### [facility] [address] [place] [address] Dr. Mary Perera ALP [Catalytic activity/Vol] 57 U/L Normal 46-116 [facility] Comment on above: Performed By: #### C MP #### [facility] [address] [place] [address] Dr. Mary Perear ALT [Catalytic activity/Vol] 36 U/L Normal 14-59 [facility] Comment on above: Performed By: #### C MP #### [facility] [address] [address] [address] Mary Perera Anion gap [Moles/Vol] 14.0 mmol/L Normal [facility] Comment on above: Performed By: #### C MP #### [facility] [address] [address] [address] Mary Perera AST [Catalytic activity/Vol] 17 U/L Normal 15-37 [facility] Comment on above: Performed By: #### C MP #### [facility] [address] [address] [address] Mary Perera Bilirubin [Mass/Vol] 0.2 mg/dL Normal 0.2-1.0 [facility] Comment on above: Performed By: #### C MP #### [facility] [address] [place] [address] Dr. Mary Perera Calcium [Mass/Vol] 8.8 mg/dL Normal 8.5-10.1 [facility] Comment on above: Performed By: #### C MP #### [facility] [address] [place] [address] Dr. Mary Perera Chloride [Moles/Vol] 101 mmol/L Normal 98-107 [facility] Comment on above: Performed By: #### C MP #### [facility] [address] [place] [address] Dr. Mary Perera CO2 [Moles/Vol] 25.5 mmol/L Normal 21.0-32.0 [facility] Comment on above: Performed By: #### C MP #### [facility] [address] [place] [address] Dr. Mary Perera Creatinine [Mass/Vol] 0.66 mg/dL Normal 0.55-1.02 [facility] Comment on above: Performed By: #### C MP #### [facility] [address] [place] [address] Dr. Mary Perera EGFR-AF PRYDEINIG >60 Normal >=60 [facility] Comment on above: Performed By: #### C MP #### [facility] [address] [place] [address] Dr. Mary Perera EGFR-NON AF PRYDEINIG >60 Normal >=60 [facility] Comment on above: Performed By: #### C MP #### [facility] [address] [address] [address] Mary Perera Globulin (S) [Mass/Vol] 3.4 g/dL Normal [facility] Comment on above: Performed By: #### C MP #### [facility] [address] [address] [address] Mary Perera Glucose [Mass/Vol] 106 mg/dL Normal 74-106 [facility] Comment on above: Performed By: #### C MP #### [facility] [address] [place] [address] Dr. Mary Perera Potassium [Moles/Vol] 3.5 mmol/L Normal 3.5-5.1 [facility] Comment on above: Performed By: #### C MP #### [facility] [address] [place] [address] Dr. Mary Perera Protein [Mass/Vol] 7.4 g/dL Normal 6.4-8.2 [facility] Comment on above: Performed By: #### C MP #### [facility] [address] [place] [address] Dr. Mary Perera Sodium [Moles/Vol] 137 mmol/L Normal 136-145 [facility] Comment on above: Performed By: #### C MP #### [facility] [address] [place] [address] Dr. Mary Perera Urea nitrogen [Mass/Vol] 12.0 mg/dL Normal 7.0-18.0 [facility] Comment on above: Performed By: #### C MP #### [facility] [address] [place] [address] Dr. Mary Perera Urea nitrogen/Creatinine [Mass ratio] 18.2 mg/mg Normal [facility] Comment on above: Performed By: #### C MP #### [facility] [address] [place] [address] Dr. Mary Perera US PREG TVon 07-07-2021 [...] CARLA MEDEROS Date: 2021-07-07 21:47 Normal [facility] CBC AUTO DIFFon 06-11-2021 BASO # 0.0 103/ul Normal 0.0-0.1 [facility] Comment on above: Performed By: #### P REGQNT #### [facility] [address] [place] [address] Dr. Mary Perera Basophils/100 WBC (Bld) 0.6 % Normal 0.2-2.0 [facility] Comment on above: Performed By: #### P REGQNT #### [facility] [address] [place] [address] Dr. Mary Perera EO # 0.1 103/ul Normal 0.0-0.7 [facility] Comment on above: Performed By: #### P REGQNT #### [facility] [address] [place] [address] Dr. Mary Perera Eosinophils/100 WBC (Bld) 1.4 % Normal 0.9-7.0 [facility] Comment on above: Performed By: #### P REGQNT #### [facility] [address] [place] [address] Dr. Mary Perera Erythrocyte distribution width (RBC) [Ratio] 14.6 % Normal 11.0-15.0 [facility] Comment on above: Performed By: #### P REGQNT #### [facility] [address] [place] [address] Dr. Mary Perera Hematocrit (Bld) [Volume fraction] 37.8 % Normal 36.0-48.0 [facility] Comment on above: Performed By: #### P REGQNT #### [facility] [address] [place] [address] Dr. Mary Perera Hemoglobin (Bld) [Mass/Vol] 12.7 g/dL Normal 12.0-16.0 [facility] Comment on above: Performed By: #### P REGQNT #### [facility] [address] [place] [address] Dr. Mary Perera IG # 0.02 10e3/ul Normal 0.00-0.03 [facility] Comment on above: Performed By: #### P REGQNT #### [facility] [address] [place] [address] Dr. Mary Perera IG % 0.3 % Normal 0.0-0.5 [facility] Comment on above: Performed By: #### P REGQNT #### [facility] [address] [place] [address] Dr. Mary Perera LYMPH # 2.6 103/ul Normal 1.2-3.8 [facility] Comment on above: Performed By: #### P REGQNT #### [facility] [address] [place] [address] Dr. Mary Perera Lymphocytes/100 WBC (Bld) 39.6 % Normal 20.5-60.0 [facility] Comment on above: Performed By: #### P REGQNT #### [facility] [address] [place] [address] Dr. Mary Perera MANUAL DIFF REQ NO Normal [facility] Comment on above: Performed By: #### P REGQNT #### [facility] [address] [place] [address] Dr. Mary Perera MCH (RBC) [Entitic mass] 28.4 pg Normal 26.7-34.0 [facility] Comment on above: Performed By: #### P REGQNT #### [facility] [address] [place] [address] Dr. Mary Perera MCHC (RBC) [Mass/Vol] 33.6 g/dL Normal 29.9-35.2 [facility] Comment on above: Performed By: #### P REGQNT #### [facility] [address] [place] [address] Dr. Mary Perera MCV (RBC) [Entitic vol] 84.6 fL Normal 81.0-99.0 [facility] Comment on above: Performed By: #### P REGQNT #### [facility] [address] [place] [address] Dr. Mary Perera MONO # 0.6 103/ul Normal 0.3-0.8 [facility] Comment on above: Performed By: #### P REGQNT #### [facility] [address] [place] [address] Dr. Mary Perera Monocytes/100 WBC (Bld) 8.7 % Normal 1.7-12.0 [facility] Comment on above: Performed By: #### P REGQNT #### [facility] [address] [place] [address] Dr. Mary Perera NEUT # 3.3 103/ul Normal 1.4-6.5 [facility] Comment on above: Performed By: #### P REGQNT #### [facility] [address] [place] [address] Dr. Mary Perera Neutrophils/100 WBC (Bld) 49.4 % Normal 43.0-75.0 [facility] Comment on above: Performed By: #### P REGQNT #### [facility] [address] [place] [address] Dr. Mary Perera Platelet mean volume (Bld) [Entitic vol] 9.2 fL Critically low 9.5-13.5 [facility] Comment on above: Performed By: #### P REGQNT #### [facility] [address] [place] [address] Dr. Mary Perera PLT 271 103/ul Normal 150-450 [facility] Comment on above: Performed By: #### P REGQNT #### [facility] [address] [place] [address] Dr. Mary Perera RBC 4.47 106/ul Normal 4.20-5.40 [facility] Comment on above: Performed By: #### P REGQNT #### [facility] [address] [place] [address] Dr. Mary Perera WBC 6.6 103/ul Normal 4.0-11.0 [facility] Comment on above: Performed By: #### P REGQNT #### [facility] [address] [place] [address] Dr. Mary Perera PREG QUANT HCGon 06-11-2021 HCG QUANT 5397 mIU/mL Normal [facility] Comment on above: Performed By: #### C MP #### [facility] [address] [place] [address] Dr. Mary Perera HCG RANGE SEE BELOW Normal [facility] Comment on above: Result Comment: 5-50 0-1 WEEK 40-300 1-2 WEEKS 100-1,000 2-3 WEEKS 500-6,000 3-4 WEEKS 5,000-200,000 1-2 MONTHS 10,000-100,000 2-3 MONTHS 3,000-50,000 2ND TRIMESTER 1,000-50,000 3RD TRIMESTER Performed By: #### C MP #### [facility] [address] [place] [address] Dr. Mary Perera PREG QUANT HCGon 06-04-2021 HCG QUANT 649 mIU/mL Normal [facility] Comment on above: Performed By: #### C MP #### [facility] [address] [address] [address] Mary Perera HCG RANGE SEE BELOW Normal [facility] Comment on above: Result Comment: -50 0-1 WEEK 40-300 1-2 WEEKS 100-1,000 2-3 WEEKS 500-6,000 3-4 WEEKS 5,000-200,000 1-2 MONTHS 10,000-100,000 2-3 MONTHS 3,000-50,000 2ND TRIMESTER 1,000-50,000 3RD TRIMESTER Performed By: #### C MP #### [facility] [address] [place] [address] Dr. Mary Perera PREG QUANT HCGon 06-02-2021 HCG QUANT 256 mIU/mL Normal [facility] Comment on above: Performed By: #### P REGQNT #### [facility] [address] [place] [address] Dr. Mary Perera HCG RANGE SEE BELOW Normal [facility] Comment on above: Result Comment: 50 0-1 WEEK 40-300 1-2 WEEKS 100-1,000 2-3 WEEKS 500-6,000 3-4 WEEKS 5,000-200,000 1-2 MONTHS 10,000-100,000 2-3 MONTHS 3,000-50,000 2ND TRIMESTER 1,000-50,000 3RD TRIMESTER Performed By: #### P REGQNT #### [facility] [address] [place] [address] Dr. Mary Perera Vital Signs Date Time Vital Sign Value Performing Clinician Faci lity 12-21-2021 18:07-0500 Body weight 71.[address] ONIEL VIEIRA . [facility] Comment on above: Performed By: #### C BC #### [facility] [address] [place] [address] Dr. Mary Perera Encounters Encounter Date Encounter Type Care Provider Facility Start: 12-12-2023 End: 12-12-2023 [employer] flowsheet Oniel Isha DO Work Phone: [facility] Start: 12-12-2023 End: 12-12-2023 [employer] flowsheet Oniel Vieira DO Work Phone: [facility] Start: 08-29-2023 End: 08-29-2023 ambulatory ONIEL VIEIRA Not Available Start: 07-20-2023 End: 07-20-2023 ambulatory DARSHAN GALEANO Not Available Start: 05-13-[address] ONIEL VIEIRA . [...] End: 06-03-[address] ONIEL VIEIRA . Facility:[facility] Procedures Date Procedure Procedure Detail Performing Clinician [...] , External Approach DR ONIEL VIEIRA . Plan of Treatment Date Care Activity Detail Author Start: 12-12-2023 End: 12-12-2023 Patient encounter procedure 12/12/2023 1:40 PM EDT Office Visit [facility] [address] [place] [id number] Oniel Vieira DO [address] [place] [address] Arrived [facility] Comment on above: Arrived Payers Date Payer Category Payer Medicaid [facility] [id number] 2019 [facility] [id number]. [id number] 1999 Unknown [id number] 2.16.840.1.018143.3.579.2. 593 1999 Unknown [id number] 2.16.840.1.939701.3.579.2. 593 1999 Unknown [id number] 2.16.840.1.786229.3.579.2. 593 1999 Unknown [id number] 2.16.840.1.504602.3.579.2. 593 1999 Unknown [id number] 2.16.840.1.535805.3.579.2. 593 1999 Unknown [id number] 2.16.840.1.158358.3.579.2. 593 1999 Unknown [id number] 2.16.840.1.553640.3.579.2. 593 1999 Unknown [id number] 2.16.840.1.176414.3.579.2. 593 1999 Unknown [id number] 2.16.840.1.567958.3.579.2. 593 1999 Unknown [id number] 2.16.840.1.047908.3.579.2. 593 1999 Unknown [id number] 2.16.840.1.074749.3.579.2. 593 1999 Unknown [id number] 2.16.840.1.027283.3.579.2. 593 1999 Unknown [id number] 2.16.840.1.523489.3.579.2. 593 1999 Unknown [id number] 2.16.840.1.961032.3.579.2. 593 1999 Unknown [id number] 2.16.840.1.554651.3.579.2. 593 1999 Unknown [id number] 2.16.840.1.366104.3.579.2. 593 1999 Unknown [id number] 2.16.840.1.313582.3.579.2. 593 1999 Unknown [id number] 2.16.840.1.106252.3.579.2. 593 1999 Unknown [id number] 2.16.840.1.624915.3.579.2. 593 1999 Unknown [id number] 2.16.840.1.156821.3.579.2. 1259 1999 Unknown [id number] 2.16.840.1.337781.3.579.2. 1259 1959 Self-pay 1959 Unknown [id number] 1959 Unknown [id number] Unknown [id number] 2.16.840.1.038429.3.579.2. 593 Social History Date Type Detail Facility Start: 07-24-2022 Tobacco smoking stat [facility] Never smoked tobacco [facility] Start: 07-24-2022 Tobacco use and exposure Smoke less tobacco non-user [facility] Start: 08-29-2023 Alcoholic beverage intake Ex-drinker (finding) [facility] Start: 12-16-2022 History of Social function [facility] Start: 12-16-2022 Tobacco use panel [facility] Start: 1999 Sex assigned at Not on file [facility] Summary Purpose Family History No Family History Records FoundNo Family History Records Found Advance Directives No Advanced Directives Records FoundNo Advanced Directives Records Found Additional Source Comments INFORMATION SOURCE (unrecogn ized section and content) DATE CREATED AUTHOR 05/19/2022 [facility] DATE CREATED AUTHOR AUTHOR'S DIONY JOHNSON 09/02/2023 [facility] EPIC FOR RECORDS PERTAINING TO PATIENTS WHO ARE [...] BE BASED ON THE PRIMARY CLINICAL RECORDS. [facility]. provides no warranty or guarantee of the accuracy or completeness of information in this document.
== END 2023-12-12 21:20 | disposition home or self-care (01) ==
LOC: LAB 21:19
PROVIDERS: PCP Nurse Practitioner Family; Visit Provider Obstetrics & Gynecology
DX: Z01.419 Encounter for gynecological examination (general) (routine) without abnormal findings (principal)
CPT/HCPCS: 88175